=== PATIENT | female | born 1980 | race Caucasian/White ===

== ENCOUNTER 2023-09-20 15:23 | Outpatient (REF) | payer MEDICAID, SELFPAY ==
[2023-09-20 16:48] LABS: Alanine Aminotransferase 23 U/L (0-31); Albumin Level 3.6 g/dL (3.5-5.0); Alkaline Phosphatase 86 U/L (39-117); Aspartate Amino Transferase 22 U/L (5-31); Bilirubin Direct 0.1 mg/dL (0.0-0.5); Bilirubin Total 0.3 mg/dL (0.0-1.0); Total Protein 7.6 g/dL (6.5-8.0)
[2023-09-21 05:55] LABS: HBS Num1 22.18 mIU/mL (0-7.99); HBc Num1 0.07 S/CO (0.00-0.79); HIV AB/AG Nonreactive (Nonreactive); HIV Num 1 0.08 S/CO (0.00-0.99); Hepatitis B Core Antibody Nonreactive (Nonreactive); Hepatitis B Surface Antigen Negative (Negative); ~HepC Num1 0.11 S/CO (0.00-0.79); ~Hepatitis B Surface Antibody REACTIVE (Nonreactive); ~Hepatitis C Antibody Nonreactive (Nonreactive)
[2023-09-21 06:06] LABS: Hepatitis A Antibody IgG Nonreactive (Nonreactive); ~Hepatitis A Antibody IgG 0.66 S/CO (0.00-0.99)
[2023-09-23 07:38] LABS: RPR Rapid Plasma Reagin NON-REACTIVE (NON-REACTIVE)
[2023-09-23 09:13] LABS: TS Negative Control Passed; TS Panel A 0; TS Panel B 0; TS Positive Control Passed; TSpotTB Negative (Negative)
== END 2023-09-20 15:24 | disposition home or self-care (01) ==
LOC: HO.HHCL 15:23
PROVIDERS: Visit Provider Emergency Medicine
DX: F11.20 Opioid dependence, uncomplicated (principal)
CPT/HCPCS: 36415; 80076; 86481; 86592; 86704; 86706; 86708; 86803; 87340; 87389

== ENCOUNTER 2024-10-24 16:59 | Outpatient (REF) | payer MEDICAID, SELFPAY ==
--- OUTSIDE RECORDS SUMMARY | 2024-10-24 19:26 | XMS_ITS | Encounter Summary ---
Author Organization [employer] Address [address] [facility] 7t [place] [address] Care Team Providers Care Grout Machine Tender Name Role Phone Faustino Swann MD Primary Care Prov ider Encounter Details Date Type Department Care Team (Latest Contact Info) Description 10/24/2024 Travel Social History Tobacco Use Types Packs/Day Years Used Date Smoking Tobacco: Every Day Cigarettes Smokeless Tobacco: Never Alcohol Answer Date Recorded How often do you have a drink containing alcohol ? 1 05/11/2024 How many drinks containing a lcohol do you have on a typical day when you are drinking? 2 05/11/2024 How often do you have six or more drinks on one occasion? 2 05/11/2024 Depression Answer Date Recorded Patient Health Questionnaire-9 Score 21 07/31/2024 Patient Health Questionnaire-9 Score 21 07/31/2024 Last PHQ-9: Questionnaire Data Not on file 1 10/01/2023 Depression Answer Date Recorded Patient Health Questionnaire-2 Score 6 07/31/2024 Comments Unknown Sex and Gender Information Value Date Recorded Sex Assigned at Female 06/21/2022 10:17 AM EDT Legal Sex Female 10:17 AM EDT Gender Identity Female 06/21/2022 10:17 AM EDT Sexual Orientation Straight 06/21/2022 10 :17 AM EDT documented as of this encounter Plan of Treatment Upcoming Encounters Date Type Department Care Team (Late st Contact Info) Description 11/20/2024 2:45 PM EDT Office Visit [facility] [address] [place] [address] Nba Guzman MD [address] [place] [address] documented as of this encounter Goals Goal Patient Goal Type Associated Problems Recent Progress Patient-Stated? Author Increase coping skills to promote long-term recovery and improve ability to perform daily activities General 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, RN Keep your medical appointments Lifestyle 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, RN documented as of this encounter Visit Diagnoses Not on filedocumented in this encounter Additional Health Concerns Assessment Noted Time PHQ-9 Depression Total Score: 21 024 1:46 PM EST documented as of this encounter Care Teams Grout Machine Tender Relationship Specialty Start Date End Date Faustino Swann MD [address] [place] [phone] PCP - General Internal Medicine 03/24/22 documented as of this encounter
--- OUTSIDE RECORDS SUMMARY | 2024-10-24 19:26 | XMS_ITS | Encounter Summary ---
Author Organization [employer] Address [address] [facility] [address] 7[address] [place] [address] Care Team Providers Care Practice Lead Name Role Phone Faustino Swann MD Primary Care Prov ider Encounter Details Date Type Department Care Team (Late st Contact Info) Description 09/26/2024 Telephone [facility] [address] [place] [address] Tabitha Cunningham RN Social History Tobacco Use Types Packs/Day Years [...] AM EDT documented as of this encounter Miscellaneous Notes * Telephone Encounter - Tabitha Cunningham RN - 09/26/2024 9:32 AM EST Telephone call received from pharmacy, pt has no active insurance. Pharmacy to let patient know. documented in this encounter Plan of Treatment Upcoming Encounters Date Type Department Care Team (Late st Contact Info) Description 11/20/2024 2:45 PM EDT Office Visit [facility] [address] [place] [address] Nba Guzman MD [address] [place] [address] documented as of this encounter Visit Diagnoses Not on filedocumented in this encounter Additional Health Concerns Assessment Noted Time PHQ-9 Depression Total Score: 21 024 1:46 PM EST documented as of this encounter Care Teams Practice Lead Relationship Specialty Start Date End Date Faustino Swann MD [address] [place] [address] PCP - General Internal Medicine 03/24/22 documented as of this encounter
--- OUTSIDE RECORDS SUMMARY | 2024-10-24 19:26 | XMS_ITS | Encounter Summary ---
Author Organization [facility] [facility] Address [address] [facility] 7t [place] [address] Care Team Providers Care Upper Tier Name Role Phone Faustino Swann MD Primary Care Prov ider Reason for Visit * Reason Onset Date Comments Med Refill 10/11/2024 Encounter Details Date Type Department Care Team ([facility] Contact Info) Description 10/11/2024 Refill [facility] [address] [place] [address] Tabitha Cunningham RN Opioid dependence, uncomplicated (CMS/HCC) Social History Tobacco Use Types Packs/Day Years [...] Upcoming Encounters Date Type Department Care Team ([facility] Contact Info) Description 11/20/2024 2:45 PM EDT Office Visit [facility] [address] [place] [address] Nba Guzman MD [address] [place] [address] documented as of this encounter Visit Diagnoses Diagnosis Opioid dependence, uncomplicated (CMS/HCC) documented in this encounter Additional Health Concerns Assessment Noted Time PHQ-9 Depression Total Score: 21 024 1:46 PM EST documented as of this encounter Care Teams Upper Tier Relationship Specialty Start Date End Date Faustino Swann MD [address] [place] [phone] PCP - General Internal Medicine 03/24/22 documented as of this encounter
--- OUTSIDE RECORDS SUMMARY | 2024-10-24 19:26 | XMS_ITS | Encounter Summary ---
Author Organization [employer] [facility] Address [address] [facility] 7t [place] [address] Care Team Providers Care Community Assistant Name Role Phone Faustino Swann MD Primary Care Prov ider Reason for Visit * Reason Comments Med Refill Encounter Details Date Type Department Care Team (Late Contact Info) Description 07/27/2024 Refill [facility] [address] [place], [place] [phone] Nba Guzman MD [address] [place], [place] [phone] Social History Tobacco Use Types Packs/Day Years [...] Encounters Date Type Department Care Team (Late Contact Info) Description 11/20/2024 2:45 PM EDT Office Visit [facility] [address] [place] [address] Nba Guzman MD [address] [place] [address] documented as of this encounter Visit Diagnoses Not on filedocumented in this encounter Additional Health Concerns Assessment Noted Time PHQ-9 Depression Total Score: 19 024 12:25 PM EDT documented as of this encounter Care Teams Community Assistant Relationship Specialty Start Date End Date Faustino Swann MD [address] [place] [phone] PCP - General Internal Medicine 03/24/22 documented as of this encounter
--- OUTSIDE RECORDS SUMMARY | 2024-10-24 19:26 | XMS_ITS | Clinical Summary ---
Author Organization [employer] Address [address] [facility] 7t [place] [address] Care Team Providers Care Shelving Supervisor Name Role Phone Faustino Swann MD Primary Care Prov ider Allergies No known active allergies Medications * This document contains information received from the source organization and may not represent a complete record from that organization. hydrOXYzine pamoate (Vistaril) 50 MG capsuleIndicatio ns:Opioid dependence, uncomplicated (CMS/HCC) Take 1 capsule (50 mg) by mouth every 6 (six) hours if needed for anxiety. 4 capsule 024 Active nicotine polacrilex (Commit) 4 MG lozenge Dissolve 1 lozenge (4 mg) in the mouth every 2 (two) hours if needed for smoking cessation. 100 lozenge 024 Active cloNIDine (Catapres) 0.1 MG tabletIndication s:Opioid dependence, uncomplicated (CMS/HCC) Take 1 tablet (0.1 mg) by mouth 2 times daily. Prn withdrawal symptoms. 2 tablet 024 2024 Active Buprenorphine HCl-Naloxone HCl (Suboxone) 8-2 MG SL filmIndications: Opioid dependence, uncomplicated (CMS/HCC) Place 1 Film under the tongue 2 times daily. 7 Film 024 Active fluticasone (Flonase Allergy Relief) 50 MCG/ACT nasal spray Administer 1 spray into each nostril Once per day. Shake gently. Before first use, prime pump. After use, clean tip and replace cap. 16 g 3 024 2024 Active albuterol 108 (90 Base) MCG/ACT inhaler Inhale 2 puffs every 4 (four) hours if needed for wheezing or shortness of breath. 18 g 5 024 2024 Active nicotine (Nicoderm CQ) 7 MG/24HR patch Place 1 patch on the skin 1 (one) time each day at the same time. 14 patch Active nicotine (Nicoderm CQ) 14 MG/24HR patch Place 1 patch on the skin 1 (one) time each day at the same time. 42 patch Active albuterol (2.5 MG/3ML) 0.083% nebulizer solution Take 3 mL (2.5 mg) by nebulization every 6 (six) hours if needed for wheezing or shortness of breath. 75 mL 3 Active Nebulizer misc 1 Units Every 4-6 hours as needed (as needed for wheezing or shortness of breath). [employer] dispensed. Education provided to pt. Active Nebulizer misc Th patient was prescribed a nebulizer from the DME vendor [employer]. Instructions on how to use the nebulizer were provided Active Mometasone Furoate (Asmanex HFA) 200 MCG/ACT aerosol Inhale 1 Act (200 mcg) 2 times daily. Rinse mouth with water after using. 13 g 3 Active Spacer/Aero-Hold ing Chambers (OptiChamber Ana) misc 1 each every 4 (four) hours if needed (asthma). 1 each Active docusate sodium (Colace) 100 MG capsuleIndicatio ns:Opioid dependence, uncomplicated (CMS/HCC) 1 or 2 capsules PO at bedtime prn constipation. 60 capsule 2 Active Buprenorphine HCl-Naloxone HCl (Suboxone) 8-2 MG SL filmIndications: Opioid dependence, uncomplicated (CMS/HCC) Place 1 Film under the tongue 2 times daily for 28 days. 56 Film 025 2024 Active docusate sodium (Colace) 100 MG capsuleIndicatio ns:Opioid dependence, uncomplicated (CMS/HCC) 1 or 2 capsules PO at bedtime prn constipation. 60 capsule 2 024 2024 Discontinued(R eorder (will not trigger notification to Pharmacy)) Buprenorphine HCl-Naloxone HCl (Suboxone) 8-2 MG SL filmIndications: Opioid dependence, uncomplicated (CMS/HCC) Place 1 Film under the tongue 2 times daily for 28 days. 56 Film 025 2024 Discontinued(R eorder (will not trigger notification to Pharmacy)) Active Problems Problem Noted Date Diagnosed Date Cannabis use disorder 10/18/2024 Homelessness 10/18/2024 BEN (generalized anxiety disorder) 05/02/2024 Opioid dependence, uncomplicated 08/09/2023 Depression 08/09/2023 Assessment & Plan (05/02/2024 11:57 AM EDT): PROGRESS NOTE: ID: Janell is a 43 y.o. White straight-identified cis-female with previous documented hx of Depression, Opioid Use Disorder, and Tobacco dependence No previous hx of services who presents for Depression, Anxiety, and Substance Use Disorder During [facility] Consult Janell presenting with depressed mood, crying spells , irritable mood, loss of interests/pleasure , sense of isolation/loneliness , change in appetite or weight reduce appetite, changes in sleep difficulty falling asleep, psychomotor agitation, worthlessness, excessive worry/anxiety, difficulty controlling worry, anxiety/worry associated to restlessness and/or feeling keyed-up/On edge , easily fatigued , difficulty concentrating and/or mind going blank , irritability, muscle tension , and sleep disturbance difficulty falling asleep, and sense of dread , and using in larger amounts or for longer than intended, unsuccessful attempt/s to cut down/stop use, cravings and urges to use, continued use, even when it causes interpersonal problems, giving up/reducing important social, occupational, or recreational activities because of use, continued use despite physical or psychological problem (potentially related or made worse by use) , withdrawal sxs , in regard to Opioids, Stimulants , and Tobacco; for a period of 18+ mo, for some symptoms and for most or all symptoms in the context of family issues, financial concern, and housing. PLAN: Behavioral Health Integration Plan Internal Follow up with [facility] Patient Self Plan Patient to utilize skills provided in intervention , [facility], Comply with medication , Patient to engage in OP therapy , and Patient to reach out to [facility] as needed Tobacco dependence 08/09/2023 Moderate persistent asthma without complication 08/09/2023 Encounters * This document contains information received from the source organization and may not represent a complete record from that organization. Date Type Department Care Team Description 10/24/2024 1:05 PM EST Clinical Support [facility] [place] [address] 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 RN Opioid dependence, uncomplicated (CMS/HCC) (Primary Dx) 10/24/2024 Travel 10/11/2024 Refill [facility] [place] [address] Tabitha Cunningham RN Opioid dependence, uncomplicated (CMS/HCC) 09/26/2024 Telephone [facility] [place] [address] Tabitha Cunningham RN 09/25/2024 2:45 PM EST Office Visit [facility] [place] [address] Nba Guzman MD Opioid type dependence, continuous (CMS/HCC) (Primary Dx); Opioid dependence, uncomplicated (CMS/HCC) 09/25/2024 Travel 09/19/2024 Refill [facility] [place] [address] Tabitha Cunningham RN Opioid dependence, uncomplicated (CMS/HCC) 08/28/2024 1:45 PM EST Office Visit [facility] [place] [address] Nba Guzman MD Opioid type dependence, continuous (CMS/HCC) (Primary Dx) 08/17/2024 Refill [facility] [place] [address] Tabitha Cunningham RN Opioid dependence, uncomplicated (CMS/HCC) 08/16/2024 Refill [facility] [place] [address] Tabitha Cunningham RN Opioid dependence, uncomplicated (CMS/HCC) 07/31/2024 2:30 PM EST Office Visit [facility] [place] [address] Nba Guzman MD Opioid dependence, uncomplicated (CMS/HCC) (Primary Dx) 07/31/2024 Travel 07/27/2024 Refill [facility] [place] [address] Nba Guzman MD from Last 3 Months Social History Tobacco Use Types Packs/Day Years Used Date Smoking Tobacco: Every Day Cigarettes Smokeless Tobacco: Never Tobacco Cessation:Ready to Q uit: Not Asked; Counseling Given: Not Answered Alcohol Answer Date Recorded How often do [...] Orientation Straight 06/21/2022 10 :17 AM EDT Last Filed Vital Signs Vital Sign Reading Time Taken Comments Blood Pressure 109/69 06/20/2024 3:20 PM EDT Pulse 91 06/20/2024 3:20 PM EDT Temperature 36.1 ??C (97 ??F) 06/20/2024 3:20 PM EDT Respiratory Rate 18 06/20/2024 3:20 PM EDT Oxygen Saturation 98% 06/20/2024 3:20 PM EDT Inhaled Oxygen Concentration - - Weight 76.2 kg (168 lb) 06/20/2024 3:20 PM EDT Height 160.5 cm (5' 3.19 ) 10/12/2019 12:[address] Body Mass Index 29.58 10/12/2019 12:02 AM EST Plan of Treatment Upcoming Encounters Date Type Department Care Team (Late st Contact Info) Description 11/20/2024 2:45 PM EDT Office Visit [facility] [address] [place] [address] Nba Guzman MD [address] [place] [address] Health Maintenance Due Date Last Done Comments Lipid Panel 1980 SDOH Screening 1980 Family Planning (PISQ) 1995 Hepatitis A Vaccines (1 of 2 - Risk 2-dose series) 1999 Hepatitis B Vaccines (1 of 3 - 19+ 3-dose series) 1999 Pneumococcal Vaccine: Pediatrics (0 to 5 Years) and At-Risk Patients (6 to 49) Years) (1 of 2 - PCV) 1999 Pap Smear 2001 DTaP/Tdap/Td Vaccines (1 - Tdap) 04/03/2016 04/02/2016 Mammogram 2020 Cervical Cancer Screening 11/22/2022 HPV/Cotest 11/22/2022 11/22/2017 COVID-19 Vaccine (1 - 2023-2 5 season) 2024 Influenza Vaccine (#1) 2024 Depression Monitoring (PHQ-9) 01/29/2025, 07/31/2024 Alcohol/Substance Use Screening 05/11/2025 05/11/2024 Depression Screening 07/31/2025 07/31/2024, 07/31/2024 Tobacco Screening 09/25/2025 09/25/2024 Zoster Vaccines (1 of 2) 2030 RSV Patients and Patients Aged 60 years or older (1 - 1-dose 75+ series) 2055 HIV Screening Completed 09/20/2023, 10/29/2019 Hepatitis C Screening Completed 09/20/2023 , 10/29/2019 HIB Vaccines Aged Out No longer eligi ble based on patient's age to complete this topic HPV Vaccines Aged Out No longer eligi ble based on patient's age to complete this topic IPV Vaccines Aged Out No longer eligi ble based on patient's age to complete this topic Meningococcal Vaccine Aged Out No christi keren eligible based on patient's age to complete this topic RSV under 20 months Aged Out No longe r eligible based on patient's age to complete this topic Rotavirus Vaccines Aged Out No longer eligible based on patient's age to complete this topic Goals Goal Patient Goal Type Associated Problems Recent Progress Patient-Stated? Author Increase coping skills to promote long-term recovery and improve ability to perform daily activities General 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, RN Keep your medical appointments Lifestyle 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 RN Procedures Procedure Name Priority Date/Time Associated Diagnosis Comments POCT DIDI-14 URINE DRUG SCREEN Routine 10/24/2024 1:33 PM EST Opioid dependence, uncomplicated (CMS/HCC) POCT DIDI-14 URINE DRUG SCREEN Routine 09/25/2024 1:51 PM EST Opioid type dependence, continuous (CMS/HCC) POCT DIDI-14 URINE DRUG SCREEN Routine 08/28/2024 2:12 PM EST Opioid type dependence, continuous (CMS/HCC) POCT DIDI-14 URINE DRUG SCREEN Routine 07/31/2024 1:48 PM EST Opioid dependence, uncomplicated (CMS/HCC) HEPATITIS C AB W/REFL TO HCV RNA, QN, PCR Routine 09/20/2023 3:27 PM EST Opioid dependence, uncomplicated (CMS/HCC) HIV 1/2 ANTIGEN/ANTIBODY, FOURTH GENERATION W/RFL Routine 09/20/2023 3:27 PM EST Opioid dependence, uncomplicated (CMS/HCC) ZZZ HISTORICAL HPV MRNA E6/E7 Routine 11/22/2017 3:29 PM EDT from Last 3 Months or Most Recently Relevant to Health Maintenance Results * POCT DIDI-14 Urine Drug Screen (10/24/2024 1:33 PM EST) Only the most recent of4 resultswithin the time period is included. THC Positive Cocaine Screen, Urine Positive Opiate Screen, Urine Negative Methamphetamine Screen Urine Negative Amphetamine Screen, Urine Negative Benzodiazepines Screen, Urine Negative Barbiturate Screen, Urine Negative Methadone Screen, Urine Negative Buprenophine Screen, Urine Positive TCA, Urine Negative MDMA Urine Negative ng/mL Oxycodone Screen, Urine Negative Phencyclidine (PCP), Urine Negative Propoxyphene, Urine Negative Fentanyl, Urine Negative Urine Urine specimen obtained by clean catch procedure / Unknown 10/24/2024 1:33 PM EST us Nba Guzman MD POINT OF CARE TEST ENTER/EDIT OR DERABLES Final Result * Hepatitis C Antibody with Reflex to HCV, RNA, Quantitative, Real-Time PCR (09/20/2023 3:27 PM EST) Hepatitis C Antibody Nonreactive Nonreactive [facility] Comment:Antibodies to HCV no t detected; does not exclude early acuteHCV infection. Blood Venous blood specimen / Unknown 09/20/2023 3:27 PM EST 09/20/2023 4:05 PM EST us Nba Guzman MD LAB BLOOD ORDERABLES Final Resul t Performing Organization Address [facility] de Phone Number [facility] [address] [place] [address] [phone] * HIV-1/2 Antigen and Antibodies, Fourth Generation, with Reflexes (09/20/2023 3:27 PM EST) Pathologist [facility] HIV AB/AG Nonreactive Nonreactive [facility] Comment:HIV-1 p24 Ag and/or HIV-1/HIV-2 Ab not detected.A test result that is nonreactive does not exclude thepossibility of exposure to or infection with HIV-1 and/orHIV-2. Nonreactive results in this assay for individualswith prior exposure to HIV-1 and/or HIV-2 may be due toantigen and antibody levels that are below the limit ofdetection of this assay.The Critique^[employer] HIV Ag/Ab Combo assay result andsupplemental assay results should be interpreted inconjunction with the patient's clinical presentation,history and other laboratory results. If the results areinconsistent with clinical evidence, additional testing issuggested to confirm the result. Blood Venous blood specimen / Unknown 09/20/2023 3:27 PM EST 09/20/2023 4:05 PM EST us Nba Guzman MD LAB BLOOD ORDERABLES Final Resul t Performing Organization Address [facility] Co de Phone Number [facility] [address] [place] [phone] * HPV mRNA E6/E7 (11/22/2017 3:29 PM EDT) HPV mRNA E6/E7 Not Detected NOT DETECTED [facility] Comment: This test was performed using the APTIMA(R) HPV Assay ([employer] This assay detects E6/E7 viral messenger RNA (mRNA) from 14 high-risk HPV types (16,18,31,33,35,39,45,51, 52,56,58,59,66,68). For additional information please refer to: http://education.EventMama/faq/OVW968g0 (This link is being provided for informational/ educational purposes only.) Test Performed by [employer], [facility], [address] [place] [address] Zhang Noguera M.D., Ph.D., Director of Laboratories , [facility] [id number] Please note: ??Effective 05/03/2016, HPV testing will be performed using [employer]'s APTIMA test which targets mRNA. Detecting mRNA instead of DNA, as in older methods, offers significant improvements in specificity. 11/22/2017 3:29 PM EDT us Maria R Vigil CNM HISTORICAL/NON ORDERABLE LABS Final Result [facility] [address] from Last 3 Months or Most Recently Relevant to Health Maintenance Insurance [facility] F[facility] Care Teams Shelving Supervisor Relationship Specialty Start Date End Date Faustino Swann MD [address] [place] [phone] PCP - General Internal Medicine 03/24/22
--- OUTSIDE RECORDS SUMMARY | 2024-10-24 19:26 | XMS_ITS | Encounter Summary ---
Author Organization [facility] Address [address] [facility] 7 [place] [address] Care Team Providers Care Plastic Tool Maker Name Role Phone Faustino Swann MD Primary Care Prov ider Encounter Details Date Type Department Care Team (Latest Contact Info) Description 09/25/2024 Travel Social History Tobacco Use Types Packs/Day [...] Description 11/20/2024 2:45 PM EDT Office Visit [facility] [address] [place], [place] [phone] Nba Guzman MD [address] [place], [place] [phone] documented as of this encounter Visit Diagnoses Not on filedocumented in this encounter Additional Health Concerns Assessment Noted Time PHQ-9 Depression Total Score: 21 024 1:46 PM EST documented as of this encounter Care Teams Plastic Tool Maker Relationship Specialty Start Date End Date Faustino Swann MD [address] [place] [phone] PCP - General Internal Medicine 03/24/22 documented as of this encounter
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
--- OUTSIDE RECORDS SUMMARY | 2024-10-24 19:26 | XMS_ITS | Encounter Summary ---
Author Organization [employer] Address [address] [facility] [address] [place] [address] Care Team Providers Care Ginger Farmer Name Role Phone Faustino Swann MD Primary Care Prov ider Reason for Visit * Reason Comments Med Refill Encounter Details Date Type Department Care Team (Late st Contact Info) Description 07/16/2024 Refill [facility] [address] [place] [phone] Nba Guzman MD [address] [place] [address] Opioid dependence, uncomplicated (CMS/HCC) Social History Tobacco [...] Answer Date Recorded Patient Health Questionnaire-9 Score 19 05/11/2024 Patient Health Questionnaire-9 Score 19 05/11/2024 Last PHQ-9: Questionnaire Data Not on file 0 05/11/2024 Depression Answer Date Recorded Patient Health Questionnaire-2 Score 6 05/11/2024 Comments Unknown Sex and Gender Information Value [...] Description 11/20/2024 2:45 PM EDT Office Visit [facility] [address] [place] [address] Nba Guzman MD [address] [place], [place] [phone] documented as of this encounter Visit Diagnoses Diagnosis Opioid dependence, uncomplicated (CMS/HCC) documented in this encounter Additional Health Concerns Assessment Noted Time PHQ-9 Depression Total Score: 19 024 12:25 PM EDT documented as of this encounter Care Teams Ginger Farmer Relationship Specialty Start Date End Date Faustino Swann MD [address] [place] [id number] PCP - General Internal Medicine 03/24/22 documented as of this encounter
--- OUTSIDE RECORDS SUMMARY | 2024-10-24 19:26 | XMS_ITS | Clinical Summary ---
Author Organization [facility] Address [address] [place] [address] Care Team Providers Care Tanning Drum Operator Name Role Phone Unavailable Primary Care Provider Unavailabl e Social History Tobacco Use Types Packs/Day Years Used Date Smoking Tobacco: Never Assessed Comments Unknown Sex and Gender Information Value Date Recorded Sex Assigned at Not on file Legal Sex Female 4:32 AM EST Gender Identity Not on file Sexual Orientation Not on file Plan of Treatment Health Maintenance Due Date Last Done Comments Breast Cancer Screening 1980 DTaP,Tdap,and Td Vaccines (1 - Tdap) 1999 Hepatitis B Vaccines (1 of 3 - 19+ 3-dose series) 1999 Cervical Cancer Screening: P ap Smear 2001 COVID-19 Vaccine (2023-2 5 season) 2024 Influenza Vaccine (#1) 2024 HIB Vaccines Aged Out No longer eligi ble based on patient's age to complete this topic HPV Vaccines Aged Out No longer eligi ble based on patient's age to complete this topic Hepatitis A Vaccines Aged Out No long er eligible based on patient's age to complete this topic IPV Vaccines Aged Out No longer eligi ble based on patient's age to complete this topic MMR Vaccines Aged Out No longer eligi ble based on patient's age to complete this topic Meningococcal ACWY Vaccine Aged Out N o longer eligible based on patient's age to complete this topic Meningococcal B Vacine Aged Out No lo nger eligible based on patient's age to complete this topic Pneumococcal Vaccine: Pediat rics (0 to 5 Years) and At-Risk Patients (6 to 64 Years) Aged Out No longer eligible b ased on patient's age to complete this topic RSV Immunization Patients Un margoth 20 months Aged Out No longer eligible b ased on patient's age to complete this topic Varicella Vaccines Aged Out No longer eligible based on patient's age to complete this topic
--- OUTSIDE RECORDS SUMMARY | 2024-10-24 19:26 | XMS_ITS | Encounter Summary ---
Author Organization [employer] Address [address] [facility] [address] [place] [address] Care Team Providers Care Retail Assistant Manager Name Role Phone Faustino Swann MD Primary Care Prov ider Reason for Visit * Reason Comments OBAT F/U Encounter Details Date Type Department Care Team (Latest Contact Info) Description 09/25/2024 2:45 PM EST Office Visit [facility] [address] [place] [phone] Nba Guzman MD [address] [place], [place] [phone] Opioid type dependence, continuous (CMS/HCC) (Primary Dx); Opioid dependence, uncomplicated (CMS/HCC) Social History Tobacco [...] as of this encounter Progress Notes * Nba Guzman MD - 09/25/2024 2:45 PM EST Subjective Patient ID: Janell Barnard is a 44 y.o. female. HPI Janell has been back in our program for 5 months, taking Suboxone 16/4 mg on 2 week schedule. Visit interval increased to 4 week schedule 08/28/2024. Induction 04/24/2024. MassPAT reviewed. Janell left our Suboxone program 10/15 because of transportation difficulty from [place]. Now has a car, so she restarted Suboxone program 04/24/2024. Labs done 09/20/2023. UTOX: +bup, thc, tca. Colace helps constipation, needs refill. Discussed Suboxone dental care and was given written instructions. States has pain in right lower molar; she will go to [facility] after CRS visit. Had intake with Zorylee 05/11. Has [employer] helping her locate an apartment. Discussed Sublocade, and she will think about it. Smokes <1/2 PPD, prescribed nicotine patches and lozenges. Doesn't like lozenges. Requesting refill of patches. Occasional EtOH. Lives with Aunt, but will move to her own apt in [place] 09/22/2024. Has no children. 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 H/o asthma, depression. Past surgical hx: neg. Lab tests done 09/20/2023. Given Fentanyl test strip kit. Discussed Suboxone dental hygiene, given written instructions.. H/o asthma, depression. Past surgical hx: neg. The following portions of the chart were reviewed this encounter and updated as appropriate: Review of Systems Constitutional: Negative for fever. Respiratory: Negative for shortness of breath. Cardiovascular: Negative for chest pain. Gastrointestinal: Negative for abdominal pain. Skin: Negative for rash. Neurological: Negative for headaches. Objective Physical Exam Vitals and nursing note reviewed. Constitutional: Appearance: Normal appearance. HENT: Head: Normocephalic and atraumatic. Nose: Nose normal. Eyes: Conjunctiva/sclera: Conjunctivae normal. Pupils: Pupils are equal, round, and reactive to light. Pulmonary: Effort: Pulmonary effort is normal. Skin: General: Skin is warm and dry. Neurological: Mental Status: She is alert. Gait: Gait is intact. Psychiatric: Mood and Affect: Mood and affect normal. Behavior: Behavior normal. Procedures Assessment/Plan Diagnoses and all orders for this visit: Opioid type dependence, continuous (CMS/HCC) Recovery support, harm reduction (including Narcan) and behavioral health attendance reviewed. Continue Suboxone 16/4 mg on 4 week schedule. Refilled Colace. - POCT DIDI-14 Urine Drug Screen - docusate sodium (Colace) 100 MG capsule; 1 or 2 capsules PO at bedtime prn constipation. documented in this encounter Plan of Treatment Upcoming Encounters Date Type Department Care Team (Late st Contact Info) Description 11/20/2024 2:45 PM EDT Office Visit [facility] [address] [place], [place] [phone] Nba Guzman MD [address] [place] [address] documented as of this encounter Procedures Procedure Name Priority Date/Time Associated Diagnosis Comments POCT DIDI-14 URINE DRUG SCREEN Routine 09/25/2024 1:51 PM EST Opioid type dependence, continuous (CMS/HCC) documented in this encounter Results * POCT DIDI-14 Urine Drug Screen (09/25/2024 1:51 PM EST) THC Positive Cocaine Screen, Urine Negative Opiate Screen, Urine Negative Methamphetamine Screen Urine Negative Amphetamine Screen, Urine Negative Benzodiazepines Screen, Urine Negative Barbiturate Screen, Urine Negative Methadone Screen, Urine Negative Buprenophine Screen, Urine Positive TCA, Urine Positive MDMA Urine Negative ng/mL Oxycodone Screen, Urine Negative Phencyclidine (PCP), Urine Negative Propoxyphene, Urine Negative Fentanyl, Urine Negative Urine Urine specimen obtained by clean catch procedure / Unknown 09/25/2024 1:51 PM EST Nba Guzman MD POINT OF CARE TEST ENTER/EDIT OR DERABLES Final Result documented in this encounter Visit Diagnoses Diagnosis Opioid type dependence, continuous (CMS/HCC)- Primary Opioid type dependence, continuous Opioid dependence, uncomplicated (CMS/HCC) documented in this encounter Additional Health Concerns Assessment Noted Time PHQ-9 Depression Total Score: 21 024 1:46 PM EST documented as of this encounter Care Teams Retail Assistant Manager Relationship Specialty Start Date End Date Faustino Swann MD [address] [place] [id number] PCP - General Internal Medicine 03/24/22 documented as of this encounter
[2024-10-31 10:37] LABS: Benzoylecgonine 376
== END 2024-10-24 17:00 | disposition home or self-care (01) ==
LOC: HO.HHCLNP 16:59
PROVIDERS: Visit Provider Emergency Medicine
DX: F11.20 Opioid dependence, uncomplicated (principal)
CPT/HCPCS: 36415; 80353

== ENCOUNTER 2024-12-06 13:07 | Outpatient (REF) | payer MEDICAID, SELFPAY ==
--- OUTSIDE RECORDS SUMMARY | 2024-12-06 16:07 | XMS_ITS | Clinical Summary ---
Author Organization [employer] Address [address] [facility] [address] [place] [address] Care Team Providers Care Claim Service Representative Name Role Phone Faustino Swann MD Primary Care Prov ider Allergies No known active allergies Medications * This document contains information received from the source organization and may not represent a complete record from that organization. hydrOXYzine pamoate (Vistaril) 50 MG capsuleIndicatio ns:Opioid dependence, uncomplicated (CMS/HCC) Take 1 capsule (50 mg) by mouth every 6 (six) hours if needed for anxiety. 4 capsule Active nicotine polacrilex (Commit) 4 MG lozenge Dissolve 1 lozenge (4 mg) in the mouth every 2 (two) hours if needed for smoking cessation. 100 lozenge Active cloNIDine (Catapres) 0.1 MG tabletIndication s:Opioid dependence, uncomplicated (CMS/HCC) Take 1 tablet (0.1 mg) by mouth 2 times daily. Prn withdrawal symptoms. 2 tablet 024 2024 Active Buprenorphine HCl-Naloxone HCl (Suboxone) 8-2 MG SL filmIndications: Opioid dependence, uncomplicated (CMS/HCC) Place 1 Film under the tongue 2 times daily. 7 Film Active fluticasone (Flonase Allergy Relief) 50 MCG/ACT nasal spray Administer 1 spray into each nostril Once per day. Shake gently. Before first use, prime pump. After use, clean tip and replace cap. 16 g 3 024 2024 Active nicotine (Nicoderm CQ) 7 MG/24HR patch Place 1 patch on the skin 1 (one) time each day at the same time. 14 patch Active nicotine (Nicoderm CQ) 14 MG/24HR patch Place 1 patch on the skin 1 (one) time each day at the same time. 42 patch Active Nebulizer misc 1 Units Every 4-6 [...] 28 days. 56 Film 025 2024 Active nicotine polacrilex (Commit) 2 MG lozenge Dissolve 1 lozenge (2 mg) in the mouth if needed for smoking cessation. 100 lozenge 025 2024 Active albuterol 108 (90 Base) MCG/ACT inhaler Inhale 2 puffs every 4 (four) hours if needed for wheezing or shortness of breath. 18 g 5 025 2025 Active albuterol (2.5 MG/3ML) 0.083% nebulizer solution Take 3 mL (2.5 mg) by nebulization every 6 (six) hours if needed for wheezing or shortness of breath. 75 mL 3 Active albuterol 108 (90 Base) MCG/ACT inhaler Inhale 2 puffs every 4 (four) hours if needed for wheezing or shortness of breath. 18 g 5 024 2024 Discontinued(R eorder (will not trigger notification to Pharmacy)) albuterol (2.5 MG/3ML) 0.083% nebulizer solution Take 3 mL (2.5 mg) by nebulization every 6 (six) hours if needed for wheezing or shortness of breath. 75 mL 3 024 2024 Discontinued(R eorder (will not trigger notification to Pharmacy)) Buprenorphine HCl-Naloxone HCl (Suboxone) 8-2 MG SL filmIndications: Opioid dependence, uncomplicated (CMS/HCC) Place 1 Film under the tongue 2 times daily for 28 days. 56 Film 025 2024 Discontinued(R eorder (will not trigger notification to Pharmacy)) Active Problems Problem Noted Date Diagnosed Date Thyroid nodule 11/27/2024 Assessment & Plan (11/30/2024 8:26 AM EDT): Patient seen with incidental thyroid nodule, will order a thyroid ultrasound for characterization, follow up after results Cannabis use disorder 10/18/2024 Homelessness 10/18/2024 BEN [...] Health Integration Plan Internal Follow up with [facility] Patient Self Plan Patient to utilize skills provided in intervention , Patient to reach out to [facility] team as needed, Comply with medication , Patient to engage in OP therapy , and Patient to reach out to [facility] as needed Tobacco dependence 08/09/2023 Moderate persistent asthma without complication 08/09/2023 Encounters * This document contains information received from the source organization and may not represent a complete record from that organization. Date Type Department Care Team Description 12/05/2024 Telephone [facility] [address] [place] [address] Faustino Swann MD Insurance reminder 2 11/27/2024 3:30 PM EDT Telemedicine [facility] [address] [place] [address] Faustino Swann MD Thyroid nodule (Primary Dx) 11/27/2024 Telephone [facility] [address] [place] [address] Faustino Swann MD Insurance/n/p appointment information 11/27/2024 Travel 11/26/2024 2:45 PM EDT Office Visit [facility] [address] [place] [phone] Nba Guzman MD Opioid dependence, uncomplicated (CMS/HCC) (Primary Dx) 11/26/[address] [address] Tabitha Cunningham, NETWORK APPLICATIONS SPECIALIST Follow-up 11/26/2024 Travel 11/15/[address] [address] Tabitha Cunningham, RN Opioid dependence, uncomplicated (CMS/HCC) 10/24/2024 1:05 PM EST Clinical Support [address] [address] 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 RN Opioid dependence, uncomplicated (CMS/HCC) (Primary Dx) 10/24/2024 Travel 10/11/2024 Refill [facility] [address] [place] [address] Tabitha Cunningham RN Opioid dependence, uncomplicated (CMS/HCC) 09/26/2024 Telephone [facility] [address] [place] [address] Tabitha Cunningham RN 09/25/2024 2:45 PM EST Office Visit [facility] [address] [place] [address] Nba Guzman MD Opioid type dependence, continuous (CMS/HCC) (Primary Dx); Opioid dependence, uncomplicated (CMS/HCC) 09/25/2024 Travel 09/19/2024 Refill [facility] [address] [place] [address] Tabitha Cunningham RN Opioid dependence, uncomplicated (CMS/HCC) from Last 3 Months Social History Tobacco [...] Answer Date Recorded Patient Health Questionnaire-9 Score 16 11/26/2024 Patient Health Questionnaire-9 Score 16 11/26/2024 Last PHQ-9: Questionnaire Data Not on file 0 11/26/2024 Depression Answer Date Recorded Patient Health Questionnaire-2 Score 3 11/26/2024 Comments Unknown Sex and Gender Information Value [...] Care Team (Late st Contact Info) Description 12/18/2024 2:30 PM EDT Office Visit [facility] [address] [place], [place] [phone] Nba Guzman MD [address] [place], [place] [phone] 12/20/2024 2:45 PM EDT Telemedicine [facility] [address] [place], [place] [phone] Barrett Faustino Lockhart MD [address] [place], [place] [phone] Health Maintenance Due Date Last Done Comments Lipid Panel 1980 SDOH Screening 1980 Family Planning (PISQ) 1995 Hepatitis B Vaccines (1 of 3 - 19+ 3-dose series) 1999 Pneumococcal Vaccine: Pediatrics (0 to 5 Years) and At-Risk Patients (6 to 49) Years) (1 of 2 - PCV) 1999 Pap Smear 2001 DTaP/Tdap/Td Vaccines (1 - Tdap) 04/03/2016 04/02/2016 Mammogram 2020 Cervical Cancer Screening 11/22/2022 HPV/Cotest 11/22/2022 11/22/2017 COVID-19 Vaccine (1 - 2023-2 5 season) 2024 Influenza Vaccine (#1) 2024 Alcohol/Substance Use Screening 05/11/2025 05/11/2024 Depression Monitoring 05/28/2025 11/26/2024 , 11/26/2024 Depression Screening 11/26/2025 11/26/2024, 11/26/2024 Tobacco Screening 11/26/2025 11/26/2024 Zoster Vaccines (1 of 2) 2030 RSV [...] your medical appointments Lifestyle 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, 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 Name Priority Date/Time Associated Diagnosis Comments POCT DIDI-14 URINE DRUG SCREEN Routine 11/26/2024 2:22 PM EDT Opioid dependence, uncomplicated (CMS/HCC) POCT DIDI-14 URINE DRUG SCREEN Routine 10/24/2024 1:33 PM EST Opioid dependence, uncomplicated (CMS/HCC) DRUG MONITOR, COCAINE METAB, QN, URINE Routine 10/24/2024 12:00 AM EST Opioid dependence, uncomplicated (CMS/HCC) POCT DIDI-14 URINE DRUG SCREEN Routine 09/25/2024 1:51 PM EST Opioid type dependence, continuous (CMS/HCC) HEPATITIS C AB W/REFL TO HCV RNA, QN, PCR Routine 09/20/2023 3:27 PM EST Opioid dependence, uncomplicated (CMS/HCC) HIV 1/2 ANTIGEN/ANTIBODY, FOURTH GENERATION W/RFL Routine 09/20/2023 3:27 PM EST Opioid dependence, uncomplicated (CMS/HCC) ZZZ HISTORICAL HPV MRNA E6/E7 Routine 11/22/2017 3:29 PM EDT from Last 3 Months or Most Recently Relevant to Health Maintenance Results * POCT DIDI-14 Urine Drug Screen (11/26/2024 2:22 PM EDT) Only the most recent of3 resultswithin the time period is included. THC Positive Cocaine Screen, Urine Negative Opiate Screen, Urine Negative Methamphetamine Screen Urine Negative Amphetamine Screen, Urine Negative Benzodiazepines Screen, Urine Negative Barbiturate Screen, Urine Negative Methadone Screen, Urine Negative Buprenophine Screen, Urine Positive TCA, Urine Negative MDMA Urine Negative ng/mL Oxycodone Screen, Urine Negative Phencyclidine (PCP), Urine Negative Fentanyl, Urine Negative Urine Urine specimen obtained by clean catch procedure / Unknown 11/26/2024 2:22 PM EDT Nba Guzman MD POINT OF CARE TEST ENTER/EDIT OR DERABLES Final Result * Drug Monitoring, Cocaine Metabolite, Quantitative, Urine (10/24/2024 12:00 AM EST) Benzoylecgonine [address] [facility] Comment:REFERENCE RANGE: <10 0 ng/mL Cocaine Comments SEE NOTE [facility] Comment:This drug testing is for medical treatment only. Analysiswas performed as non-forensic testing and these resultsshould be used only by healthcare providers to renderdiagnosis or treatment, or to monitor progress of medicalconditions.Cocaine Notes:Benzoylecgonine detected is consistent with the use of thedrug Cocaine.LDT Notes:Confirmation tests were developed and their analyticalperformance characteristics have been determined by [employer]. It has not been cleared or approved by the FDA.This assay has been validated pursuant to the CLIAregulations and is used for clinical purposes.Healthcare Providers needing Interpretation assistance,please contact us at [phone] ( ) M-F,8am to 10pm ESTTHIS TEST PERFORMED AT:[facility] [address] [phone] DIRECTOR: SAM GARCIA MD 10/24/2024 10/24/2024 us Nba Guzman MD LAB URINE ORDERABLES Final Resul t Performing Organization Address [facility] Co de Phone Number [facility] [address] [place] [phone] * Hepatitis C Antibody with Reflex to HCV, RNA, Quantitative, Real-Time PCR (09/20/2023 3:27 PM EST) Hepatitis C Antibody Nonreactive Nonreactive [facility] Comment:Antibodies to HCV no t detected; does not exclude early acuteHCV infection. Blood Venous blood specimen / Unknown 09/20/2023 3:27 PM EST 09/20/2023 4:05 PM EST us Nba Guzman MD LAB BLOOD ORDERABLES Final Resul t Performing Organization Address [facility] Co de Phone Number [facility] [address] [place] [phone] * HIV-1/2 Antigen and Antibodies, Fourth Generation, with Reflexes (09/20/2023 3:27 PM EST) HIV AB/AG Nonreactive Nonreactive [facility] Comment:HIV-1 p24 Ag and/or HIV-1/HIV-2 Ab not detected.A test result that is nonreactive does not exclude thepossibility of exposure to or infection with HIV-1 and/orHIV-2. Nonreactive results in this assay for individualswith prior exposure to HIV-1 and/or HIV-2 may be due toantigen and antibody levels that are below the limit ofdetection of this assay.The [employer] HIV Ag/Ab Combo assay result andsupplemental assay results should be interpreted inconjunction with the patient's clinical presentation,history and other laboratory results. If the results areinconsistent with clinical evidence, additional testing issuggested to confirm the result. Blood Venous blood specimen / Unknown 09/20/2023 3:27 PM EST 09/20/2023 4:05 PM EST us Nba Guzman MD LAB BLOOD ORDERABLES Final Resul t [facility] [address] [place] [phone] * HPV mRNA E6/E7 (11/22/2017 3:29 PM EDT) HPV mRNA E6/E7 Not Detected NOT DETECTED [facility] Comment: This test was performed using the APTIMA(R) HPV Assay ([employer] This assay detects E6/E7 viral messenger RNA (mRNA) from 14 high-risk HPV types (16,18,31,33,35,39,45,51, 52,56,58,59,66,68). For additional information please refer to: http://education.ContactPoint.NoRedInk/faq/NFR752d0 (This link is being provided for informational/ educational purposes only.) Test Performed by [employer] [facility], [address] [place] [address] Zhang Noguera M.D., Ph.D., Director of Laboratories , [place] [id number] Please note: ??Effective 05/03/2016, HPV testing will be performed using [employer]'s APTIMA test which targets mRNA. Detecting mRNA instead of DNA, as in older methods, offers significant improvements in specificity. 11/22/2017 3:29 PM EDT us Maria R Rizzardini CNM HISTORICAL/NON ORDERABLE LABS Final Result [facility] [address] from Last 3 Months or Most Recently Relevant to Health Maintenance Insurance [facility] Care Teams Claim Service Representative Relationship Specialty Start Date End Date Faustino Swann MD [address] [place] [phone] PCP - General Internal Medicine 03/24/22
--- OUTSIDE RECORDS SUMMARY | 2024-12-06 16:07 | XMS_ITS | Encounter Summary ---
Author Organization [employer] Address [address] [facility] 7t [place] [address] Care Team Providers Care Wood Turner Name Role Phone Faustino Swann MD Primary Care Prov ider Reason for Visit * Reason Onset Date Comments Insurance reminder 2 12/05/2024 Encounter Details Date Type Department Care Team (Late st Contact Info) Description 12/05/2024 Telephone [facility] [address] [place], [place] [phone] Faustino Swann MD [address] [place] [address] Insurance reminder 2 Social History Tobacco Use Types Packs/Day Years [...] encounter Miscellaneous Notes * Telephone Encounter - Pascual Marie - 12/05/2024 10:16 AM EDT Outgoing call to pt informing her to please update PCP/LOC. Pt stated she was aware that change hadto be made but had forgotten to do so. Pt was at work but mentioned she would take care of it carrie. documented in this encounter Plan of Treatment Upcoming Encounters Date Type Department Care Team (Late st Contact Info) Description 12/18/2024 2:30 PM EDT Office Visit [facility] [address] [place], [place] [phone] Nba Guzman MD [address] [place], [place] [phone] 12/20/2024 2:45 PM EDT Telemedicine [facility] [address] [place], [place] [phone] Faustino Swann MD [address] [place] [address] documented as of this encounter Goals Goal [...] Assessment Noted Time PHQ-9 Depression Total Score: 16 025 2:27 PM EDT documented as of this encounter Care Teams Wood Turner Relationship Specialty Start Date End Date Faustino Swann MD [address] [place] [phone] PCP - General Internal Medicine 03/24/22 documented as of this encounter
--- OUTSIDE RECORDS SUMMARY | 2024-12-06 16:08 | XMS_ITS | Encounter Summary ---
Author Organization [employer] [facility] Address [address] [facility] 7t [place] [address] Care Team Providers Care Small Business Consultant Name Role Phone Faustino Swann MD Primary Care Prov ider Reason for Visit * Reason Comments Med Refill Encounter Details Date Type Department Care Team (Late st Contact Info) Description 07/16/[address] [facility] [address] [place] [phone] Nba Guzman MD [address] [place], [place] [phone] Opioid dependence, uncomplicated (CMS/HCC) Social History Tobacco [...] Description 12/18/2024 2:30 PM EDT Office Visit [facility] [address] [place] [address] Nba Guzman MD [address] [place], [place] [phone] 12/20/2024 2:45 PM EDT Telemedicine [facility] [address] [place] [address] Faustino Swann MD [address] [place] [address] documented as of this encounter Visit Diagnoses Diagnosis Opioid dependence, uncomplicated (CMS/HCC) documented in this encounter Additional Health Concerns Assessment Noted Time PHQ-9 Depression Total Score: 19 024 12:25 PM EDT documented as of this encounter Care Teams Small Business Consultant Relationship Specialty Start Date End Date Faustino Swann MD [address] [place] [address] PCP - General Internal Medicine 03/24/22 documented as of this encounter
--- OUTSIDE RECORDS SUMMARY | 2024-12-06 16:08 | XMS_ITS | Encounter Summary ---
Author Organization [employer] [facility] Address [address] [facility] 7t [place] [address] Care Team Providers Care Manager Quantitative Name Role Phone Faustino Swann MD Primary Care Prov ider Reason for Visit * Reason Comments Med Refill Encounter Details Date Type Department Care Team (Late st Contact Info) Description 07/27/2024 Refill [facility] [address] [place] [phone] Nba Guzman MD [address] [place], [place] [phone] Social History Tobacco Use Types Packs/Day Years [...] Description 12/18/2024 2:30 PM EDT Office Visit [facility] [address] [place], [place] [phone] Nba Guzman MD [address] [place] [address] 12/20/2024 2:45 PM EDT Telemedicine [facility] [address] [place] [address] Faustino Swann MD [address] [place] [address] documented as of this encounter Visit Diagnoses Not on filedocumented in this encounter Additional Health Concerns Assessment Noted Time PHQ-9 Depression Total Score: 19 024 12:25 PM EDT documented as of this encounter Care Teams Manager Quantitative Relationship Specialty Start Date End Date Faustino Swann MD [address] [place] [address] PCP - General Internal Medicine 03/24/22 documented as of this encounter
--- OUTSIDE RECORDS SUMMARY | 2024-12-06 16:08 | XMS_ITS | Clinical Summary ---
Author [facility] Address [address] [place] [address] Care Team Providers Care Supervisor Hand Workers Name Role Phone Unavailable Primary Care Provider [...] Vaccine (2023-2 5 season) 2024 Influenza Vaccine (Season Ended) 2025 HIB Vaccines Aged Out No longer eligi [...] age to complete this topic Meningococcal B Vaccine Aged Out No l onger eligible based on patient's age to complete [...]
[2024-12-06 16:18] LABS: MANUAL DIFF FLAG NO
[2024-12-06 17:20] LABS: Basophils Percent Auto 0.3 % (0-2); Eosinophils Absolute Auto 0.3 X10*3/uL (0.0-0.4); Eosinophils Percent Auto 3.1 % (0-4); Hematocrit 39.1 % (37.0-47.0); Hemoglobin 13.4 g/dl (12.0-16.0); Imm Gran Abs Auto 0.03 X10*3/uL (0.00-0.03); Imm Gran Pct Auto 0.3 % (0.0-0.4); Lymphocytes Percent Auto 21.9 % (20-40); Mean Corpuscular HGB Conc 34.3 g/dl (31.0-35.0); Mean Corpuscular Hemoglobin 30.8 pg (27.0-33.0); Mean Corpuscular Volume 89.9 fL (80.0-98.0); Mean Platelet Volume 12.3 fL (9.4-12.3); Monocytes Absolute Auto 0.6 X10*3/uL (0.1-1.2); Monocytes Percent Auto 6.1 % (2-11); Neutrophils Absolute Auto 6.2 x10*3/uL (2.0-8.3); Neutrophils Percent Auto 68.3 % (45-73); Platelet Count 261 X10*3/uL (160-400); Red Blood Count 4.35 X10*6/uL (4.20-5.50); Red Cell Distribution Width 13.9 % (11.0-16.0); White Blood Count 9.1 X10*3/uL (4.8-10.8)
[2024-12-06 17:36] LABS: Anion Gap 10 (12-20); Blood Urea Nitrogen 14 mg/dL (9-16); Calcium 8.9 mg/dL (8.4-10.2); Carbon Dioxide 23 mmol/L (22-29); Chloride 107 mmol/L (96-108); Estimated Glomerular Filt Rate > 60; Sodium 136 mmol/L (135-145)
[2024-12-06 17:57] LABS: TSH reflex Free T4 < 0.01 uIU/mL (0.32-4.0)
[2024-12-06 18:22] LABS: Glucose Random 111 mg/dL (60-115)
[2024-12-06 18:46] LABS: Free T4 (Free Thyroxine) 1.43 ng/dL (0.71-1.85)
[2024-12-07 06:23] LABS: Triiodothyronine T3 Free 5.5 pg/mL (2.3-4.2)
[2024-12-07 08:06] LABS: HBsAGNum1 0.37 S/CO (0.00-0.99); HIV AB/AG Nonreactive (Nonreactive); HIV Num 1 0.07 S/CO (0.00-0.99); Hepatitis B Core Antibody Nonreactive (Nonreactive); Hepatitis B Surface Antigen Negative (Negative); ~HepC Num1 0.12 S/CO (0.00-0.79); ~Hepatitis C Antibody Nonreactive (Nonreactive)
[2024-12-07 19:24] LABS: RPR Rapid Plasma Reagin NON-REACTIVE (NON-REACTIVE)
[2024-12-08 23:43] LABS: TS Negative Control Passed; TS Panel A 4; TS Panel B 1; TS Positive Control Passed; TSpotTB Negative (Negative)
== END 2024-12-06 13:08 | disposition home or self-care (01) ==
LOC: HO.HHCL 13:07
PROVIDERS: Visit Provider Emergency Medicine
DX: F11.20 Opioid dependence, uncomplicated (principal)
CPT/HCPCS: 36415; 80048; 84439; 84443; 84481; 85025; 86481; 86592; 86704; 86803; 87340; 87389

== ENCOUNTER → 2025-02-05 14:45 | Outpatient (BNV) | payer OTHER, SELFPAY | PROVIDERS: PCP Internal Medicine; Visit Provider Internal Medicine | DX: Z12.31 Encounter for screening mammogram for malignant neoplasm of breast (principal) | CPT/HCPCS: 77063; 77067 ==

== ENCOUNTER 2025-02-05 14:52 | Outpatient (REF) | payer OTHER, SELFPAY ==
--- OUTSIDE RECORDS SUMMARY | 2025-02-05 17:14 | XMS_ITS | Clinical Summary ---
Author Organization [employer] Address [address] [facility] [address] [place] [address] Care Team Providers Care Welfare Manager Name Role Phone Faustino Swann MD [...] cap. 16 g 3 024 2024 Active Nebulizer misc 1 Units Every 4-6 hours as needed (as needed for wheezing or shortness of breath). [employer] dispensed. Education provided to pt. Active Nebulizer misc Th patient was prescribed a nebulizer from the DME vendor [employer]. Instructions on how to use the nebulizer were provided Active Spacer/Aero-Hold ing Chambers (OptiChamber Ana) misc 1 each every 4 (four) hours if needed (asthma). 1 each 024 Active docusate sodium (Colace) 100 MG capsuleIndicatio ns:Opioid dependence, uncomplicated (CMS/HCC) TAKE 1 TO 2 CAPSULES BY MOUTH DAILY AT BEDTIME NEEDED FOR CONSTIPATION 180 capsule 1 Active nicotine (Nicoderm CQ) 14 MG/24HR patch Place 1 patch on the skin 1 (one) time each day at the same time. 42 patch 025 Active nicotine (Nicoderm CQ) 7 MG/24HR patch Place 1 patch on the skin 1 (one) time each day at the same time. 14 patch Active nicotine polacrilex (Commit) 2 MG lozenge Dissolve 1 lozenge (2 mg) in the mouth if needed for smoking cessation. 100 lozenge Active albuterol 108 (90 Base) MCG/ACT inhaler Inhale 2 puffs every 4 (four) hours if needed for wheezing or shortness of breath. 18 g 5 025 2025 Active albuterol (2.5 MG/3ML) 0.083% nebulizer solution Take 3 mL (2.5 mg) by nebulization every 6 (six) hours if needed for wheezing or shortness of breath. 75 mL 5 Active fluticasone furoate (Arnuity Ellipta) 100 MCG/ACT inhaler Inhale 1 puff Once per day. Rinse mouth with water after use to reduce aftertaste and incidence of candidiasis. Do not swallow. 1 each 025 2025 Active Buprenorphine HCl-Naloxone HCl (Suboxone) 8-2 MG SL filmIndications: Opioid dependence, uncomplicated (CMS/HCC) Place 1 Film under the tongue 2 times daily for 28 days. 56 Film 025 2024 Active acetaminophen (Tylenol) 500 MG tablet Take 2 tablets (1,000 mg) by mouth every 6 (six) hours if needed for moderate pain or fever for up to 25 doses. 50 tablet 025 Active Buprenorphine HCl-Naloxone HCl (Suboxone) 8-2 MG SL filmIndications: Opioid dependence, uncomplicated (CMS/HCC) Place 1 Film under the tongue 2 times daily for 28 days. 56 Film 025 2024 Discontinued(R eorder (will not trigger notification to Pharmacy)) Active Problems Problem Noted Date Diagnosed Date Subclinical hyperthyroidism 01/16/2025 Assessment & Plan (01/16/2025 2:54 PM EDT): Will check tsh again in 2-3 months, patient currently asymptomatic Thyroid nodule 11/27/2024 Assessment & Plan (01/16/2025 2:53 PM EDT): Ultrasound showed scatered hypoechoic nodules or pseudonodules that could reflect thyroiditis, no criteria met for follow up. Assessment & Plan (11/30/2024 8:26 AM EDT): [...] and Tobacco dependence No previous hx of MH services who presents for Depression, Anxiety, and [...] Health Integration Plan Internal Follow up with [facility] Patient Self Plan Patient to utilize skills provided in intervention , Patient to reach out to [facility] team as needed, Comply with medication , Patient to engage in OP therapy , and Patient to reach out to [facility] as needed Tobacco dependence 08/09/2023 Moderate persistent asthma without complication 08/09/2023 Encounters * This document contains information received from the source organization and may not represent a complete record from that organization. Date Type Department Care Team Description 01/22/2025 2:45 PM EDT Office Visit [facility] [address] [place] [phone] Nba Guzman MD Opioid dependence, uncomplicated (CMS/HCC) (Primary Dx); Blurry vision, bilateral 01/22/2025 Travel 01/16/2025 2:30 PM EDT Telemedicine [facility] [address] [place] [address] Faustino Swann MD Encounter for screening mammogram for malignant neoplasm of breast (Primary Dx); Subclinical hyperthyroidism; Thyroid nodule 01/16/2025 Travel 01/15/2025 2:30 PM EDT Clinical Support [facility] [address] [place] [address] [phone] Tabitha Cunningham RN Opioid dependence, uncomplicated (CMS/HCC) (Primary Dx) 01/15/2025 Travel 01/09/2025 Refill [facility] [address] [place] [address] [phone] Tabitha Cunningham, RN Opioid dependence, uncomplicated (CMS/HCC) 12/20/2024 Telephone [facility] [address] [place], [place] [phone] Faustino Swann MD No Show 12/20/2024 Telephone [facility] [address] [place] [phone] Faustino Swann MD 12/20/2024 Telephone [facility] [address] [place] [address] Faustino Swann MD 12/20/2024 Travel 12/17/2024 2:45 PM EDT Office Visit [facility] [address] [place] [address] [phone] Nba Guzman MD Opioid dependence, uncomplicated (CMS/HCC) (Primary Dx) 12/17/2024 Orders Only [facility] [address] [place] [address] [phone] Nba Guzman MD 12/17/2024 Travel 12/17/2024 Refill [facility] [address] [place] [address] [phone] Nba Guzman MD Opioid dependence, uncomplicated (CMS/HCC) 12/11/2024 Refill [facility] [address] [place] [address] [phone] Tabitha Cunningham RN Opioid dependence, uncomplicated (CMS/HCC) 12/07/2024 Telephone [facility] [address] [place] [address] [phone] Tabitha Cunningham RN 12/05/2024 Telephone [facility] [address] [place] [address] Faustino Swann MD Insurance reminder 2 11/27/2024 3:30 PM EDT Telemedicine [facility] [address] [place] [address] Faustino Swann MD Thyroid nodule (Primary Dx) 11/27/2024 Telephone [facility] [address] [place] [address] Faustino Swann MD Insurance/n/p appointment information 11/27/2024 Travel 11/26/2024 2:45 PM EDT Office Visit [facility] [address] [place] [address] [phone] Nba Guzman MD Opioid dependence, uncomplicated (CMS/HCC) (Primary Dx) 11/26/2024 Telephone [facility] [address] [place] [phone] Tabitha Cunningham RN ER Follow-up 11/26/2024 Travel 11/15/2024 Refill [facility] [address] [place] [address] Tabitha Cunningham, RN Opioid dependence, uncomplicated (CMS/HCC) from Last [...] Care Team (Late st Contact Info) Description 02/12/2025 2:00 PM EDT Office Visit [facility] [address] [place] [address] Nba Guzman MD [address] [place] [address] Health Maintenance Due Date Last Done Comments Lipid Panel 1980 SDOH Screening 1980 Disability Screening 1980 Family Planning (PISQ) 1995 Hepatitis B Vaccines (1 of 3 - 19+ 3-dose series) 1999 Pneumococcal Vaccine: Pediatrics (0 to 5 Years) and At-Risk Patients (6 to 49) Years (1 of 2 - PCV) 1999 Pap Smear 2001 DTaP/Tdap/Td Vaccines (1 - Tdap) 04/03/2016 04/02/2016 Mammogram 2020 Cervical Cancer Screening 11/22/2022 HPV/Cotest 11/22/2022 11/22/2017 COVID-19 Vaccine (1 - 2023-2 5 season) 2024 Influenza Vaccine (Season Ended) 2025 Alcohol/Substance Use Screening 05/11/2025 05/11/2024 Depression Monitoring 05/28/2025 11/26/2024 , 11/26/2024 Tobacco Screening 01/22/2026 01/22/2025 Zoster Vaccines (1 of 2) 2030 RSV Patients and Patients Aged 60 years or older (1 - 1-dose 75+ series) 2055 HIV Screening Completed 12/06/2024, 09/20/2023, 10/29/2019 Hepatitis C Screening Completed 12/06/2024 , 09/20/2023, 10/29/2019 HIB Vaccines Aged Out No longer [...] perform daily activities General 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, SANTOS Keep your medical appointments Lifestyle 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, 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 Procedure Name Priority Date/Time Associated Diagnosis Comments POCT DIDI-14 URINE DRUG SCREEN Routine 01/22/2025 2:57 PM EDT Opioid dependence, uncomplicated (CMS/HCC) POCT DIDI-14 URINE DRUG SCREEN Routine 01/15/2025 2:42 PM EDT Opioid dependence, uncomplicated (CMS/HCC) US THYROID Routine 01/04/2025 Thyroid nodule POCT DIDI-14 URINE DRUG SCREEN Routine 12/17/2024 2:56 PM EDT Opioid dependence, uncomplicated (CMS/HCC) T4, FREE Routine 12/06/2024 1:14 PM EDT Opioid dependence, uncomplicated (CMS/HCC) CBC WITH AUTO DIFFERENTIAL Routine 12/06/2024 1:14 PM EDT Opioid dependence, uncomplicated (CMS/HCC) BASIC METABOLIC PANEL Routine 12/06/2024 1:14 PM EDT Opioid dependence, uncomplicated (CMS/HCC) T3, FREE Routine 12/06/2024 1:14 PM EDT Opioid dependence, uncomplicated (CMS/HCC) TSH W/REFLEX TO FT4 Routine 12/06/2024 1 :14 PM EDT Opioid dependence, uncomplicated (CMS/HCC) T-SPOT(R).TB Routine 12/06/2024 1:14 PM EDT Opioid dependence, uncomplicated (CMS/HCC) RPR (MONITOR) W/REFL TITER Routine 12/06/2024 1:14 PM EDT Opioid dependence, uncomplicated (CMS/HCC) HIV 1/2 ANTIGEN/ANTIBODY, FOURTH GENERATION W/RFL Routine 12/06/2024 1:14 PM EDT Opioid dependence, uncomplicated (CMS/HCC) HEPATITIS C AB W/REFL TO HCV RNA, QN, PCR Routine 12/06/2024 1:14 PM EDT Opioid dependence, uncomplicated (CMS/HCC) HEPATITIS B SURFACE ANTIGEN, EIA Routine 12/06/2024 1:14 PM EDT Opioid dependence, uncomplicated (CMS/HCC) HEPATITIS B CORE AB TOTAL Routine 12/06/2024 1:14 PM EDT Opioid dependence, uncomplicated (CMS/HCC) POCT DIDI-14 URINE DRUG SCREEN Routine 11/26/2024 2:22 PM EDT Opioid dependence, uncomplicated (CMS/HCC) ZZZ HISTORICAL HPV MRNA E6/E7 Routine 11/22/2017 3:29 PM EDT from Last 3 Months or Most Recently Relevant to Health Maintenance Results * POCT DIDI-14 Urine Drug Screen (01/22/2025 2:57 PM EDT) Only the most recent of4 resultswithin the [...] obtained by clean catch procedure / Unknown 01/22/2025 2:57 PM EDT Nba Guzman MD POINT OF CARE TEST ENTER/EDIT OR DERABLES Final Result * US Thyroid (01/04/2025) Anatomical Region Laterality Modality Head, Neck Ultrasound us Faustino Lockhart MD IMG US PROCEDURES Final Result * T-SPOT??.TB (12/06/2024 1:14 PM EDT) T Spot TB Negative Negative [facility] Comment:A negative test resu lt does not exclude the possibilityof exposure to or infection with Mycobacteriumtuberculosis (M. tuberculosis). Patients with recentexposure to TB infected individuals exhibiting anegative T-SPOT.TB result should be considered forretesting within 6 weeks or if other relevant clinicalsymptoms indicate. Results from T-SPOT.TB testing mustbe used in conjunction with each individual'sepidemiological history, current medical status,and results of other diagnostic evaluations.The T-SPOT.TB test is qualitative and results arereported as positive, borderline, or negative, giventhat the test controls perform as expected. In linewith the Centers for Disease Control and Prevention's2010 recommendation to report quantitative measurementsalongside the qualitative result, the laboratoryprovides spot counts for informational purposes only.The T-SPOT.TB test should not be interpreted as aquantitative test. TS PANEL A 4 [facility] TS PANEL B 1 [facility] Negative Control Passed [facility] Positive Control Passed [facility] Comment:For additional infor kenneth, please refer tohttp://education.Nebula/faq/QWR441(This link is being provided for informational/educational purposes only.)REPORT COMMENT:REC'D IN Q-CHYTHIS TEST WAS PERFORMED AT:[employer] [id number] [place] [id number] AREVALO MD,PHD 12/06/2024 1:14 PM EDT 12/06/2024 4:12 PM EDT us Nba Guzman MD LAB BLOOD ORDERABLES Final Resul t [facility] [address] [place] [address] [phone] * (ABNORMAL) TSH with Reflex to Free T4 (12/06/2024 1:14 PM EDT) Pathologist [facility] TSH reflex Free T4 <0.01(L) 0.32 - 4.0 uIU/mL [facility] Blood Venous blood specimen / Unknown 12/06/2024 1:14 PM EDT 12/06/2024 4:12 PM EDT us Nba Guzman MD LAB BLOOD ORDERABLES Final Resul t [facility] [address] [place] [address] [phone] * CBC auto differential (12/06/2024 1:14 PM EDT) Pathologist [facility] White Blood Count 9.1 4.8 - 10.8 X10*3/uL [facility] Red Blood Count 4.35 4.20 - 5.50 X10*6/uL [facility] Hemoglobin 13.4 12.0 - 16.0 g/dl [facility] Hematocrit 39.1 37.0 - 47.0 % [facility] Mean Corpuscular Volume 89.9 80.0 - 98.0 fL [facility] Mean Corpuscular Hemoglobin 30.8 27.0 - 33.0 pg [facility] Mean Corpuscular HGB Conc 34.3 31.0 - 35.0 g/dl [facility] Red Cell Distribution Width 13.9 11.0 - 16.0 % [facility] Platelet Count 261 160 - 400 X10*3/uL [facility] Mean Platelet Volume 12.3 9.4 - 12.3 fL [facility] Neutrophils Percent Auto 68.3 45 - 73 % [facility] Imm Gran Pct Auto 0.3 0.0 - 0.4 % [facility] Lymphocytes Percent Auto 21.9 20 - 40 % [facility] Monocytes Percent Auto 6.1 2 - 11 % [facility] Eosinophils Percent Auto 3.1 0 - 4 % [facility] Basophils Percent Auto 0.3 0 - 2 % [facility] NRBC Pct Auto 0.0 0.0 - 0.2 /100WBC [facility] Neutrophils Absolute Auto 6.2 2.0 - 8.3 x10*3/uL [facility] Imm Gran Abs Auto 0.03 0.00 - 0.03 X10*3/uL [facility] Lymphocytes Absolute Auto 2.0 1.2 - 4.9 X10*3/uL [facility] Monocytes Absolute Auto 0.6 0.1 - 1.2 X10*3/uL [facility] Eosinophils Absolute Auto 0.3 0.0 - 0.4 X10*3/uL [facility] Basophils Absolute Auto 0.0 0.0 - 0.2 X10*3/uL [facility] NRBC Abs Auto 0.000 0.0 - 0.012 X10*3/uL [facility] Blood Venous blood specimen / Unknown 12/06/2024 1:14 PM EDT 12/06/2024 4:12 PM EDT us Nba Guzman MD LAB BLOOD ORDERABLES Final Resul t Performing Organization Address City/[facility]/ZIP Co de Phone Number [facility] [address] [place], [place] [phone] * Hepatitis C Antibody with Reflex to HCV, RNA, Quantitative, Real-Time PCR (12/06/2024 1:14 PM EDT) Hepatitis C Antibody Nonreactive Nonreactive [facility] Comment:Antibodies to HCV no t detected; does not exclude early acuteHCV infection. Blood Venous blood specimen / Unknown 12/06/2024 1:14 PM EDT 12/06/2024 4:12 PM EDT us Nba Guzman MD LAB BLOOD ORDERABLES Final Resul t [facility] [address] [place] [address] [phone] * Hepatitis B surface antigen, EIA (12/06/2024 1:14 PM EDT) Hepatitis B Surface Ag Negative Negative [facility] Blood Venous blood specimen / Unknown 12/06/2024 1:14 PM EDT 12/06/2024 4:12 PM EDT us Nba Guzman MD LAB BLOOD ORDERABLES Final Resul t Performing Organization Address City/[facility]/ZIP Co de Phone Number [facility] [address] [place] [phone] * Hepatitis B Core Antibody, Total (12/06/2024 1:14 PM EDT) Hepatitis B Core Antibody Nonreactive Nonreactive [facility] Blood Venous blood specimen / Unknown 12/06/2024 1:14 PM EDT 12/06/2024 4:12 PM EDT us Nba Guzman MD LAB BLOOD ORDERABLES Final Resul t Performing Organization Address City/[facility] Co de Phone Number [facility] [address] [place] [phone] * RPR (Monitor) with Reflex to??Titer (12/06/2024 1:14 PM EDT) RPR (Monitor) w/Refl Titer NON-REACTI VE NON-REACT ZARIA [facility] Comment:THIS TEST WAS PERFOR MED AT:[employer] [place] [phone] GARCIA MD Rapid Plasma Reagin Ab Titer TNP [facility] Blood Venous blood specimen / Unknown 12/06/2024 1:14 PM EDT 12/06/2024 4:12 PM EDT us Nba Guzman MD LAB BLOOD ORDERABLES Final Resul t Performing Organization Address [facility]/ZIP Co de Phone Number [facility] [address] [place] [address] [phone] * HIV-1/2 Antigen and Antibodies, Fourth Generation, with Reflexes (12/06/2024 1:14 PM EDT) HIV AB/AG Nonreactive Nonreactive [facility] Comment:HIV-1 p24 Ag and/or HIV-1/HIV-2 Ab not detected.A test result that is nonreactive does not exclude thepossibility of exposure to or infection with HIV-1 and/orHIV-2. Nonreactive results in this assay for individualswith prior exposure to HIV-1 and/or HIV-2 may be due toantigen and antibody levels that are below the limit ofdetection of this assay.The [employer] HIV Ag/Ab Combo assay result andsupplemental assay results should be interpreted inconjunction with the patient's clinical presentation,history and other laboratory results. If the results areinconsistent with clinical evidence, additional testing issuggested to confirm the result. Blood Venous blood specimen / Unknown 12/06/2024 1:14 PM EDT 12/06/2024 4:12 PM EDT Nba Guzman MD LAB BLOOD ORDERABLES Final Resul t Performing Organization Address [facility] Co de Phone Number [facility] [address] [place] [address] [phone] * (ABNORMAL) T3, Free (12/06/2024 1:14 PM EDT) T3, Free 5.5(A) 2.3 - 4.2 pg/mL [facility] Comment:THIS TEST WAS PERFOR MED AT:[employer] [place] [phone] GARCIA MD Blood Venous blood specimen / Unknown 12/06/2024 1:14 PM EDT 12/06/2024 4:12 PM EDT us Nba Guzman MD LAB BLOOD ORDERABLES Final Resul t Performing Organization Address City/[facility]/ZIP Co de Phone Number [facility] [address] [place] [address] [phone] * T4, Free (12/06/2024 1:14 PM EDT) Free T4 (Free Thyroxine) 1.43 0.71 - 1.85 ng/dL [facility] 12/06/2024 1:14 PM EDT 12/06/2024 4:12 PM EDT us Nba Guzman MD LAB BLOOD ORDERABLES Final Resul t Performing Organization Address [facility] Co de Phone Number [facility] [address] [place] [phone] * (ABNORMAL) Basic Metabolic Panel (12/06/2024 1:14 PM EDT) [facility] Sodium 136 135 - 145 mmol/L [facility] Potassium 4.0 3.3 - 5.1 mmol/L [facility] Chloride 107 96 - 108 mmol/L [facility] Carbon Dioxide 23 22 - 29 mmol/L [facility] Anion Gap 10(L) 12 - 20 [facility] Urea Nitrogen (BUN) 14 9 - 16 mg/dL [facility] Creatinine, Serum 0.66 0.5 - 1.4 mg/dL [facility] Estimated Glomerular Filt Rate >60 [facility] Comment:Chronic Kidney Disea se: Estimated GFR < 60 mL/min/1.10e3Tearpb Kidney Disease: Estimated GFR < 15 mL/min/1.73m2 Glucose 111 60 - 115 mg/dL [facility] Calcium 8.9 8.4 - 10.2 mg/dL [facility] Blood Venous blood specimen / Unknown 12/06/2024 1:14 PM EDT 12/06/2024 4:12 PM EDT us Nba Guzman MD LAB BLOOD ORDERABLES Final Resul t [facility] [address] [place] [phone] * HPV mRNA E6/E7 (11/22/2017 3:29 PM EDT) HPV mRNA E6/E7 Not Detected NOT DETECTED [facility] Comment: This test was performed using the APTIMA(R) HPV Assay ([employer] This assay detects E6/E7 viral messenger RNA (mRNA) from 14 high-risk HPV types (16,18,31,33,35,39,45,51, 52,56,58,59,66,68). For additional information please refer to: http://education.Nebula/faq/ZBH758a0 (This link is being provided for informational/ educational purposes only.) Test [facility], [facility], [address] [place] [phone] Zhang Arevalo M.D., Ph.D., Director of Laboratories , [facility] [id number] Please note: ??Effective 05/03/2016, HPV testing will be performed using [employer]'s APTIMA test which targets mRNA. Detecting mRNA instead of DNA, as in older methods, offers significant improvements in specificity. 11/22/2017 3:29 PM EDT Maria R Vigil CNM HISTORICAL/NON ORDERABLE LABS Final Result [facility] [address] from Last 3 Months or Most Recently Relevant to Health Maintenance Insurance [employer] Care Teams Welfare Manager Relationship Specialty Start Date End Date Faustino Swann MD [address] [place] [phone] PCP - General Internal Medicine 03/24/22
== END 2025-02-05 14:53 | disposition home or self-care (01) ==
LOC: HO.MAMMO 14:52
PROVIDERS: PCP Internal Medicine; Visit Provider Internal Medicine
DX: Z12.31 Encounter for screening mammogram for malignant neoplasm of breast (principal)
CPT/HCPCS: 77063; 77067

== ENCOUNTER 2025-03-05 14:52 | Outpatient (REF) | payer MEDICAID, SELFPAY ==
--- OUTSIDE RECORDS SUMMARY | 2025-03-05 16:14 | XMS_ITS | Clinical Summary ---
[facility] Organization [facility] Address [address] [place] [address] Care Team Providers Care Event Attendant Name Role Phone Unavailable Primary Care Provider [...] Screening: P ap Smear 2001 COVID-19 Vaccine ( - 2023-2 5 season) 2024 Influenza Vaccine (#1) 2025 HIB Vaccines Aged Out No longer [...] 5 Years) and At-Risk Patients (6 to 49 Years) Aged Out No longer eligible b ased on patient's age to complete this topic RSV Immunization Patients Un margoth 20 months Aged Out No longer eligible b ased on patient's age to complete this topic Varicella Vaccines Aged Out No longer eligible based on patient's age to complete this topic
--- OUTSIDE RECORDS SUMMARY | 2025-03-05 16:14 | XMS_ITS | Clinical Summary ---
Author Organization [employer] Address [address] [facility] [address] [place] [address] Care Team Providers Care Oem Sales Manager Name Role Phone Faustino Swann MD Primary Care Prov ider Allergies No known active allergies Medications * This document contains information received from the source organization and may not represent a complete record from that organization. nicotine polacrilex (Commit) 4 MG lozenge Dissolve 1 lozenge (4 mg) in the mouth every 2 (two) hours if needed for smoking cessation. 100 lozenge 024 Active fluticasone (Flonase Allergy Relief) 50 MCG/ACT nasal spray Administer 1 spray into each nostril Once per day. Shake gently. Before first use, prime pump. After use, clean tip and replace cap. 16 g 3 024 2024 Active Nebulizer misc 1 Units Every 4-6 hours as needed (as needed for wheezing or shortness of breath). Accelleron dispensed. Education provided to pt. Active Spacer/Aero-Hold ing Chambers (OptiChamber Ana) misc 1 each every 4 (four) hours if needed (asthma). 1 each 024 Active docusate sodium (Colace) 100 MG capsuleIndicatio ns:Opioid dependence, uncomplicated (CMS/HCC) TAKE 1 TO 2 CAPSULES BY MOUTH DAILY AT BEDTIME NEEDED FOR CONSTIPATION 180 capsule 1 025 Active nicotine (Nicoderm CQ) 14 MG/24HR patch Place 1 patch on the skin 1 (one) time each day at the same time. 42 patch 025 Active nicotine (Nicoderm CQ) 7 MG/24HR patch Place 1 patch on the skin 1 (one) time each day at the same time. 14 patch 025 Active nicotine polacrilex (Commit) 2 MG lozenge [...] of candidiasis. Do not swallow. 1 each 2025 Active acetaminophen (Tylenol) 500 MG tablet Take 2 tablets (1,000 mg) by mouth every 6 (six) hours if needed for moderate pain or fever for up to 25 doses. 50 tablet Active Buprenorphine HCl-Naloxone HCl (Suboxone) 8-2 MG SL filmIndications: Opioid dependence, uncomplicated (CMS/HCC) Place 1 Film under the tongue 2 times daily for 11 days. 22 Film 025 2024 Active hydrOXYzine pamoate (Vistaril) 50 MG capsuleIndicatio ns:Opioid dependence, uncomplicated (CMS/HCC) Take 1 capsule (50 mg) by mouth every 6 (six) hours if needed for anxiety. 4 capsule 024 2024 Discontinued(T herapy completed) cloNIDine (Catapres) 0.1 MG tabletIndication s:Opioid dependence, uncomplicated (CMS/HCC) Take 1 tablet (0.1 mg) by mouth 2 times daily. Prn withdrawal symptoms. 2 tablet 024 2024 Discontinued(T herapy completed) Buprenorphine HCl-Naloxone HCl (Suboxone) 8-2 MG SL filmIndications: Opioid dependence, uncomplicated (CMS/HCC) Place 1 Film under the tongue 2 times daily. 7 Film 024 2024 Discontinued(T herapy completed) Nebulizer misc Th patient was prescribed a nebulizer from the DME vendor [employer]. Instructions on how to use the nebulizer were provided 2024 Discontinued(T herapy completed) Buprenorphine HCl-Naloxone HCl (Suboxone) 8-2 MG SL filmIndications: Opioid dependence, uncomplicated (CMS/HCC) Place 1 Film under the tongue 2 times daily for 28 days. 56 Film 025 2024 Discontinued(R eorder (will not trigger notification to Pharmacy)) Active Problems Problem Noted Date Diagnosed Date Mass of lower outer quadrant of right breast Assessment & Plan (03/05/2025 10:27 AM EDT): Will send for diagnostic mammography and breast US following CRICO guidelines. F/up with results Cervical cancer screening 03/05/2025 Assessment & Plan (03/05/2025 10:27 AM EDT): 44 y.o. here for cervical cancer screening. Will continue monitoring following ASCCP guidelines. 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 Recommended to decrease soda and sugary beverage consumption. Recommended at least 20 g per meal of protein to assist with satiety. Recommended at least 150 min/week of moderate intensity exercise. Subclinical hyperthyroidism 01/16/2025 Assessment & Plan (01/16/2025 [...] up after results Cannabis use disorder 10/18/2024 BEN (generalized anxiety disorder) 05/02/2024 Opioid [...] Health Integration Plan Internal Follow up with [facility] Patient Self Plan Patient to utilize skills provided in intervention , Patient to reach out to [facility] team as needed, Comply with medication , Patient to engage in OP therapy , and Patient to reach out to HC as needed Tobacco dependence 08/09/2023 Moderate persistent asthma without complication 08/09/2023 Resolved Problems Problem Noted Date Diagnosed Date Resolved Date Homelessness 10/18/2024 03/01/2025 Encounters * This document contains information received from the source organization and may not represent a complete record from that organization. Date Type Department Care Team Description 03/05/2025 10:00 AM EDT Procedure Visit [facility] [address] [place] [address] Shanna Travis MD Cervical cancer screening (Primary Dx); Dietary counseling; Exercise counseling; Overweight; Encounter for immunization; Mass of lower outer quadrant of right breast 03/05/2025 Travel 03/01/2025 Refill [facility] [address] [place] [address] [phone] Riki Vargas RN Opioid dependence, uncomplicated (CMS/HCC) 02/26/2025 Population Health Risk Score [facility] ([facility]) Department [address] [place] [address] [phone] Provider, Population Health Generic 01/22/2025 2:45 PM EDT Office Visit [facility] [address] [place] [address] [phone] Nba Guzman MD Opioid dependence, uncomplicated (CMS/HCC) (Primary Dx); Blurry vision, bilateral 01/22/2025 Travel 01/16/2025 2:30 PM EDT Telemedicine [facility] [address] [place] [address] Faustino Swann MD Encounter for screening mammogram for malignant neoplasm of breast (Primary Dx); Subclinical hyperthyroidism; Thyroid nodule 01/16/2025 Travel 01/15/2025 2:30 PM EDT Clinical Support [facility] [address] [place] [address] [phone] Tabitha Cunningham RN Opioid dependence, uncomplicated (CMS/HCC) (Primary Dx) 01/15/2025 Travel 01/09/2025 Refill [facility] [address] [place] [address] [phone] Tabitha Cunningham RN Opioid dependence, uncomplicated (CMS/HCC) 12/20/2024 Telephone [facility] [address] [place] [address] Faustino Swann MD No Show 12/20/2024 Telephone [facility] [address] [place] [address] Faustino Swann MD 12/20/2024 Telephone [facility] [address] [place] [address] Faustino Swann MD 12/20/2024 Travel 12/17/2024 2:45 PM EDT Office Visit [facility] [address] [place] [address] Nba Guzman MD Opioid dependence, uncomplicated (CMS/HCC) (Primary Dx) 12/17/2024 Orders Only [facility] [address] [place] [address] Nba Guzman MD 12/17/2024 Travel 12/17/2024 Refill [facility] [address] [place] [address] Nba Guzman MD Opioid dependence, uncomplicated (CMS/HCC) 12/11/2024 Refill [facility] [address] [place] [phone] Tabitha Cunningham RN Opioid dependence, uncomplicated ([facility]/HCC) 12/07/2024 Telephone [facility] [address] [place] [phone] Tabitha Cunningham RN 12/05/2024 Telephone [facility] [address] [place] [address] Faustino Swann MD Insurance reminder 2 from Last 3 Months Immunizations Immunization Administration Dates Next Due Pneumococcal Conjugate PCV 20 03/05/2025 Td (adult), 5 Lf tetanus tox oid, preservative free, adsorbed 04/02/2016 Tdap 03/05/2025 Family History Medical History Relation Name Comments Leukemia Brother HIV Father Asthma Mother Heart disease Mother Relation Name Status Comments Brother Father Mother Social History Tobacco Use Types Packs/Day Years Used Date Smoking Tobacco: Every Day Cigarettes Smokeless Tobacco: Never Tobacco Cessation:Ready to Q uit: Not Asked; Counseling Given: Not Answered Alcohol Use Standard Drinks/Week Comments Yes 0 (1 standard drink = 0.6 oz pur e alcohol) Social, irregular Alcohol Answer Date Recorded How often do [...] Patient Health Questionnaire-2 Score 3 11/26/2024 Comments No Sex and Gender Information Value Date Recorded Sex Assigned at Female 06/21/2022 10:17 AM EDT Legal Sex Female 10:17 AM EDT Gender Identity Female 06/21/2022 10:17 AM EDT Sexual Orientation Straight 06/21/2022 10 :17 AM EDT Last Filed Vital Signs Vital Sign Reading Time Taken Comments Blood Pressure 133/80 03/05/2025 9:55 AM EDT Pulse 78 03/05/2025 9:55 AM EDT Temperature 36.7 C (98.1 F) 03/05/2025 9:55 AM EDT Respiratory Rate 16 03/05/2025 9:55 AM EDT Oxygen Saturation 98% 03/05/2025 9:55 AM EDT Inhaled Oxygen Concentration - - Weight 65.8 kg (145 lb) 03/05/2025 9:55 AM EDT Height 160.5 cm (5' 3.19 ) 03/05/2025 9:55 AM ED T Body Mass Index 25.53 03/05/2025 9:55 AM EDT Plan of Treatment Upcoming Encounters Date Type Department Care Team (Late st Contact Info) Description 03/12/2025 2:15 PM EDT Office Visit [facility] [address] [place] [address] Nba Guzman MD [address] [place] [address] Health Maintenance Due Date Last Done Comments Lipid Panel 1980 SDOH Screening 1980 Disability Screening 1980 Family Planning (PISQ) 1995 HPV Vaccines (1 - 3-dose series) 1995 Hepatitis B Vaccines (1 of 3 - 19+ 3-dose series) 1999 Pap Smear 2001 Cervical Cancer Screening 11/22/2022 HPV/Cotest 11/22/2022 11/22/2017 COVID-19 Vaccine (2023-2 5 season) 2025 Postponed from 04/22 (Supply/Drug Shortage) Influenza Vaccine (#1) 2025 Alcohol/Substance Use Screening 05/11/2025 05/11/2024 Depression Monitoring 05/28/2025 11/26/2024 , 11/26/2024 Tobacco Screening 03/05/2026 03/05/2025 Mammogram 02/05/2027 02/05/2025 Zoster Vaccines (1 of 2) 2030 DTaP/Tdap/Td Vaccines (2 - T d or Tdap) 03/05/2035 03/05/2025, 04/02/2016 RSV Patients and Patients Aged 60 years or older (1 - 1-dose 75+ series) 2055 HIV Screening Completed 12/06/2024, 09/20/2023, 10/29/2019 Hepatitis C Screening Completed 12/06/2024 , 09/20/2023, 10/29/2019 Pneumococcal Vaccine: Pediatrics (0 to 5 Years) and At-Risk Patients (6 to 49) Years Completed 03/05/2025 HIB Vaccines Aged Out No longer eligi [...] your medical appointments Lifestyle 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, 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 Procedure Name Priority Date/Time Associated Diagnosis Comments BI MAMMOGRAM SCREENING TOMOSYNTHESIS BILATERAL Routine 02/05/2025 2:55 PM EDT Encounter for screening mammogram for malignant neoplasm of breast POCT DIDI-14 URINE DRUG SCREEN Routine 01/22/2025 [...] 1:14 PM EDT Opioid dependence, uncomplicated (CMS/HCC) ZZZ HISTORICAL HPV MRNA E6/E7 Routine 11/22/2017 3:29 PM EDT from Last 3 Months or Most Recently Relevant to Health Maintenance Results * BI Mammogram Screening Tomosynthesis Bilateral (02/05/2025 2:55 PM EDT) Anatomical Region Laterality Modality Breast Bilateral Mammography 02/05/2025 2:55 PM EDT Narrative 02/10/2025 9:40 PM EDT [facility] [address] [place] [address] Mammography Report Signed Patient: Janell Joy MR#: [id number] : 1980 Acct:[id number] Age/Sex: 44 / F ADM Date: 02/05/25 Loc: HO.MAMMO Attending Dr: Faustino Lockhart MD Ordering Physician: Faustino Swann MD Res ults: 1Negative Date of Service: 02/05/25 Follow Up: 1 Year From [facility] Mammogram Procedure(s): MM tomosynthesis screening BI Accession Number(s): [id number] cc: Faustino Swann MD EXAMINATION: MM SCREENING DIGITAL BREAST TOMOSYNTHESIS, BILATERAL CLINICAL INFORMATION: Screening. Asymptomatic. COMPARISON: Mammography: Baseline. TECHNIQUE: Digital breast mammography with tomosynthesis is performed in both the craniocaudal and mediolateral oblique views along with computer-aided detection (CAD). FINDINGS: The breasts are heterogeneously dense, which may obscure small masses (ACR BI-RADS breast composition Category c). There are no significant masses, abnormal calcifications, or other abnormalities. MM/MM tomosynthesis screening BI IMPRESSION: No mammographic evidence of malignancy. ASSESSMENT: BI-RADS BI-RADS 1 - Negative RECOMMENDATION: Routine annual mammography screening. 1 year F/U This examination should not preclude the clinical evaluation of a suspicious palpable abnormality. This patient's information was entered into a reminder system with a target due date for their next mammogram. Electronically signed by: Darby Caro DO 02/10/2025 09:37 PM EDT RP Dictated By: Darby Caro DO Signed By: <Electronically signed by Darby Caro DO in OV> 02/10/25 1425 DD/ 1455 TD/TT: 02/05/25 1512 National Sales Associate: Procedure Note Donotuseinterpreter, Image - 02/10/2025 [facility] [address] [place] [address] Mammography Report Signed Patient: Janell Joy LMR#: [id number] : 1980Acct:[id number] Age/Sex: 44 / FADM Date: 02/05/25 Loc: HO.MAMMO Attending Dr: Faustino Lockhart MD Ordering Physician: Faustino Swann ults: 1Negative Date of Service: 02/05/25Follow Up: 1 Year From Orig inal Mammogram Procedure(s): MM tomosynthesis screening BI Accession Number(s): [id number] cc: Faustino Swann MD EXAMINATION: MM SCREENING DIGITAL BREAST TOMOSYNTHESIS, BILATERAL CLINICAL INFORMATION: Screening. Asymptomatic. COMPARISON: Mammography: Baseline. TECHNIQUE: Digital breast mammography with tomosynthesis is performed in both the craniocaudal and mediolateral oblique views along with computer-aided detection (CAD). FINDINGS: The breasts are heterogeneously dense, which may obscure small masses (ACR BI-RADS breast composition Category c). There are no significant masses, abnormal calcifications, or other abnormalities. MM/MM tomosynthesis screening BI IMPRESSION: No mammographic evidence of malignancy. ASSESSMENT: BI-RADS BI-RADS 1 - Negative RECOMMENDATION: Routine annual mammography screening. 1 year F/U This examination should not preclude the clinical evaluation of a suspicious palpable abnormality. This patient's information was entered into a reminder system with a target due date for their next mammogram. Electronically signed by: Darby Caro DO 02/10/2025 09:37 PM EDT Dictated By: Darby Caro DO Signed By: <Electronically signed by Darby Caro DO in OV> 02/10/25 4917 DD/ 1455 TD/TT: 02/05/25 1512 National Sales Associate: Faustino Lockhart MD [facility] BI PROCEDURES Edited Result - Final * POCT DIDI-14 Urine Drug Screen (01/22/2025 2:57 PM EDT) Only the most recent of3 [...] procedure / Unknown 01/22/2025 2:57 PM EDT Result [facility] Nba Guzman MD POINT OF CARE TEST ENTER/EDIT OR DERABLES Final Result * US Thyroid (01/04/2025) Anatomical Region Laterality Modality Head, Neck Ultrasound Faustino Lockhart MD [facility] US PROCEDURES Final Result * T-SPOT??.TB (12/06/2024 1:14 PM EDT) T Spot TB Negative Negative [facility] Comment:A negative test resu lt does [...] as aquantitative test. TS PANEL A 4 [facility] TS PANEL B 1 [facility] Negative Control Passed [facility] Positive Control Passed [facility] Comment:For additional infor kenneth, please refer [email or web address](This link is being provided for informational/educational purposes only.)REPORT COMMENT:REC'D IN Q-CHYTHIS TEST WAS PERFORMED AT:[email or web address] [id number] [place] [id number] AREVALO MD,PHD 12/06/2024 1:14 PM EDT 12/06/2024 4:12 PM EDT us Nba Guzman MD LAB BLOOD ORDERABLES Final Resul t Performing Organization Address City/[facility]/ZIP Co de Phone Number [facility] [address] [place] [address] [phone] * (ABNORMAL) TSH with Reflex to Free T4 (12/06/2024 1:14 PM EDT) TSH reflex Free T4 <0.01(L) 0.32 - 4.0 uIU/mL [facility] Blood Venous blood specimen / Unknown 12/06/2024 1:14 PM EDT 12/06/2024 4:12 PM EDT us Nba Guzman MD LAB BLOOD ORDERABLES Final Resul t Performing Organization Address City/[facility]/ZIP Co de Phone Number [facility] [address] [place] [phone] * CBC auto differential (12/06/2024 1:14 PM EDT) White Blood Count 9.1 4.8 - 10.8 X10*3/uL [facility] Red Blood Count 4.35 4.20 - 5.50 X10*6/uL [facility] Hemoglobin 13.4 12.0 - 16.0 g/dl [facility] Hematocrit 39.1 37.0 - 47.0 % [facility] Mean Corpuscular Volume 89.9 80.0 - 98.0 fL [facility] Mean Corpuscular Hemoglobin 30.8 27.0 - 33.0 pg [facility] Mean Corpuscular HGB Conc 34.3 31.0 - 35.0 g/dl [facility] Red Cell Distribution Width 13.9 11.0 - 16.0 % [facility] Platelet Count 261 160 - 400 X10*3/uL [facility] Mean Platelet Volume 12.3 9.4 - 12.3 fL [facility] Neutrophils Percent Auto 68.3 45 - 73 % [facility] Imm Gran Pct Auto 0.3 0.0 - 0.4 % [facility] Lymphocytes Percent Auto 21.9 20 - 40 % [facility] Monocytes Percent Auto 6.1 2 - 11 % [facility] Eosinophils Percent Auto 3.1 0 - 4 % [facility] Basophils Percent Auto 0.3 0 - 2 % [facility] NRBC Pct Auto 0.0 0.0 - 0.2 /100WBC [facility] Neutrophils Absolute Auto 6.2 2.0 - 8.3 x10*3/uL [facility] Imm Gran Abs Auto 0.03 0.00 - 0.03 X10*3/uL [facility] Lymphocytes Absolute Auto 2.0 1.2 - 4.9 X10*3/uL [facility] Monocytes Absolute Auto 0.6 0.1 - 1.2 X10*3/uL [facility] Eosinophils Absolute Auto 0.3 0.0 - 0.4 X10*3/uL [facility] Basophils Absolute Auto 0.0 0.0 - 0.2 X10*3/uL [facility] NRBC Abs Auto 0.000 0.0 - 0.012 X10*3/uL [facility] Blood Venous blood specimen / Unknown 12/06/2024 1:14 PM EDT 12/06/2024 4:12 PM EDT us Nba Guzman MD LAB BLOOD ORDERABLES Final Resul t Performing Organization Address [facility] Co de Phone Number [facility] [address] [place] [phone] * Hepatitis C Antibody with Reflex to HCV, RNA, Quantitative, Real-Time PCR (12/06/2024 1:14 PM EDT) Hepatitis C Antibody Nonreactive Nonreactive [facility] Comment:Antibodies to HCV no t detected; does not exclude early acuteHCV infection. Blood Venous blood specimen / Unknown 12/06/2024 1:14 PM EDT 12/06/2024 4:12 PM EDT us Nba Guzman MD LAB BLOOD ORDERABLES Final Resul t Performing Organization Address [facility] Co de Phone Number [facility] [address] [place] [phone] * Hepatitis B surface antigen, EIA (12/06/2024 1:14 PM EDT) Hepatitis B Surface Ag Negative Negative [facility] Blood Venous blood specimen / Unknown 12/06/2024 1:14 PM EDT 12/06/2024 4:12 PM EDT us Nba Guzman MD LAB BLOOD ORDERABLES Final Resul t Performing Organization Address [facility] Co de Phone Number [facility] [address] [place] [address] [phone] * Hepatitis B Core Antibody, Total (12/06/2024 1:14 PM EDT) Hepatitis B Core Antibody Nonreactive Nonreactive [facility] Blood Venous blood specimen / Unknown 12/06/2024 1:14 PM EDT 12/06/2024 4:12 PM EDT us Nba Guzman MD LAB BLOOD ORDERABLES Final Resul t Performing Organization Address [facility] Co de Phone Number [facility] [address] [place] [phone] * RPR (Monitor) with Reflex to??Titer (12/06/2024 1:14 PM EDT) RPR (Monitor) w/Refl Titer NON-REACTI VE NON-REACT ZARIA [facility] Comment:THIS TEST WAS PERFOR MED AT:[email or web address] [place] [phone] GARCIA MD Rapid Plasma Reagin Ab Titer TNP [facility] Blood Venous blood specimen / Unknown 12/06/2024 1:14 PM EDT 12/06/2024 4:12 PM EDT us Nba Guzman MD LAB BLOOD ORDERABLES Final Resul t Performing Organization Address [facility] Co de Phone Number [facility] [address] [place] [phone] * HIV-1/2 Antigen and Antibodies, Fourth Generation, with Reflexes (12/06/2024 1:14 PM EDT) HIV AB/AG Nonreactive Nonreactive [facility] Comment:HIV-1 p24 Ag and/or HIV-1/HIV-2 Ab not detected.A test result that is nonreactive does not exclude thepossibility of exposure to or infection with HIV-1 and/orHIV-2. Nonreactive results in this assay for individualswith prior exposure to HIV-1 and/or HIV-2 may be due toantigen and antibody levels that are below the limit ofdetection of this assay.[employer] HIV Ag/Ab Combo assay result andsupplemental assay results should be interpreted inconjunction with the patient's clinical presentation,history and other laboratory results. If the results areinconsistent with clinical evidence, additional testing issuggested to confirm the result. Blood Venous blood specimen / Unknown 12/06/2024 1:14 PM EDT 12/06/2024 4:12 PM EDT us Nba Guzman MD LAB BLOOD ORDERABLES Final Resul t Performing Organization Address [facility] Phone Number [facility] [address] [place] [phone] * (ABNORMAL) T3, Free (12/06/2024 1:14 PM EDT) T3, Free 5.5(A) 2.3 - 4.2 pg/mL [facility] Comment:THIS TEST WAS PERFOR MED AT:[email or web address] [address] [phone] GARCIA MD Blood Venous blood specimen / Unknown 12/06/2024 1:14 PM EDT 12/06/2024 4:12 PM EDT us bNa Guzman MD LAB BLOOD ORDERABLES Final Resul t Performing Organization Address [facility] Co de Phone Number [facility] [address] [place] [phone] * T4, Free (12/06/2024 1:14 PM EDT) Free T4 (Free Thyroxine) 1.43 0.71 - 1.85 ng/dL [facility] 12/06/2024 1:14 PM EDT 12/06/2024 4:12 PM EDT us Nba Guzman MD LAB BLOOD ORDERABLES Final Resul t Performing Organization Address [facility] de Phone Number [facility] [address] [place] [address] [phone] * (ABNORMAL) Basic Metabolic Panel (12/06/2024 1:14 PM EDT) Pathologist [facility] [place] Sodium 136 135 - 145 mmol/L [facility] Potassium 4.0 3.3 - 5.1 mmol/L [facility] Chloride 107 96 - 108 mmol/L [facility] Carbon Dioxide 23 22 - 29 mmol/L [facility] Anion Gap 10(L) 12 - 20 [facility] Urea Nitrogen (BUN) 14 9 - 16 mg/dL [facility] Creatinine, Serum 0.66 0.5 - 1.4 mg/dL [facility] Estimated Glomerular Filt Rate >60 [facility] Comment:Chronic Kidney Disea se: Estimated GFR < 60 mL/min/1.44x4Xyngvc Kidney Disease: Estimated GFR < 15 mL/min/1.73m2 Glucose 111 60 - 115 mg/dL [facility] Calcium 8.9 8.4 - 10.2 mg/dL [facility] Blood Venous blood specimen / Unknown 12/06/2024 1:14 PM EDT 12/06/2024 4:12 PM EDT Nba Guzman MD LAB BLOOD ORDERABLES Final Resul t Performing Organization Address [facility] de Phone Number [facility] [address] [place] [phone] * HPV mRNA E6/E7 (11/22/2017 3:29 PM EDT) HPV mRNA E6/E7 Not Detected NOT DETECTED [facility] Comment: This test was performed using the APTIMA(R) HPV Assay ([employer] This assay detects E6/E7 viral messenger RNA (mRNA) from 14 high-risk HPV types (16,18,31,33,35,39,45,51, 52,56,58,59,66,68). For additional information please refer to: http://education.Deenty.RealTravel/faq/HHS098y8 (This link is being provided for informational/ educational purposes only.) Test Performed by [employer], [facility], [address] [place] [address] Zhang Arevalo M.D., Ph.D., Director of Laboratories , [facility] [id number] Please note: Effective 05/03/2016, HPV testing will be performed using [employer]'s APTIMA test which targets mRNA. Detecting mRNA instead of DNA, as in older methods, offers significant improvements in specificity. 11/22/2017 3:29 PM EDT Maria R Vigil CNM HISTORICAL/NON ORDERABLE LABS Final Result Performing Organization Address City/State/[facility] Co hi Phone Number [facility] Anywhere [address] from Last 3 Months or Most Recently Relevant to Health Maintenance [place] [address] [address] [place] [address] C3 Care Teams Oem Sales Manager Relationship Specialty Start Date End Date Faustino Swann MD [address] [place] [phone] PCP - General Internal Medicine 03/24/22
== END 2025-03-05 14:53 | disposition home or self-care (01) ==
LOC: HO.CHCLNP 14:52
PROVIDERS: Visit Provider Family Medicine
DX: Z12.4 Encounter for screening for malignant neoplasm of cervix (principal)
CPT/HCPCS: 87626; 88175